=== PATIENT | male | born 1965 | race Caucasian/White ===

== ENCOUNTER 2017-11-14 13:13 | Emergency (ER) | payer OTHER ==
[~2017-11-14] VITALS: Ht 193 cm; Wt 158.8 kg
[2017-11-14] MEDS ORDERED: ALBUTEROL/IPRATROPIUM 3 ML NEB NEB ONE (14:00)
[2017-11-14] MEDS ORDERED: DEXAMETHASONE SOD PHOS 10 MG/1 ML VIAL IV ONE (14:00)
[2017-11-14 19:54] VITALS: BP 156/92
== END 2017-11-14 14:15 | disposition home or self-care (01) ==
LOC: ER 13:13 → FSED 14:15
DX: R05 Cough (principal); R10.12 Left upper quadrant pain; J20.9 Acute bronchitis, unspecified; I10 Essential (primary) hypertension
CPT/HCPCS: 99282; J1100

== ENCOUNTER → 2018-01-08 | Day surgery (SDC) | payer OTHER ==
[2018-01-06 17:19] LABS: BASOPHILS # (AUTO) 0.1 (0.0-0.1); BASOPHILS % 0.6 % (0.0-1.0); EOSINOPHILS # (AUTO) 0.5 (0.0-0.4); EOSINOPHILS % 4.2 % (0.0-6.0); HEMATOCRIT 46.7 % (38.2-49.6); HEMOGLOBIN 16.4 g/dL (14.0-18.0); LYMPHOCYTES # (AUTO) 3.2 (1.0-3.2); LYMPHOCYTES % 29.3 % (18.0-39.1); MEAN CORPUSCULAR HEMOGLOBIN 31.5 pg (28-32); MEAN CORPUSCULAR HGB CONC 35.1 g/dL (31-35); MEAN CORPUSCULAR VOLUME 89.6 fL (81-99); MONOCYTES # (AUTO) 0.6 (0.2-0.8); MONOCYTES % 5.2 % (4.4-11.3); NEUTROPHILS # (AUTO) 6.6 (2.1-6.9); NEUTROPHILS % 60.4 % (38.7-80.0); PLATELET COUNT 233 x10e3/uL (140-360); RED BLOOD COUNT 5.21 x10e6/uL (4.3-5.7); RED CELL DISTRIBUTION WIDTH 13.5 % (11.7-14.4)
--- NOTE | 2018-01-06 17:19 | Diagnostic Imaging Report ---
PROCEDURE: Frontal and lateral views of the chest. COMPARISON: None. INDICATIONS: PRE-OP HERNIA FINDINGS: Lines/tubes: None. Lungs: The lungs are well inflated and clear. There is no evidence of pneumonia or pulmonary edema. Pleura: There is no pleural effusion or pneumothorax. Heart and mediastinum: The heart and the mediastinum are normal. Bones: No acute bony abnormality. IMPRESSION: No acute cardiopulmonary disease. Dictated by: Jesse Dillard M.D. on 01/06/2018 at 17:19 Electronically approved by: Jesse Dillard M.D. on 01/06/2018 at 17:19
[2018-01-06 17:35] LABS: ANION GAP 11.9 mmol/L (8-16); BLOOD UREA NITROGEN 10 mg/dL (7-26); BUN/CREATININE RATIO 10 (6-25); CALCIUM 9.2 mg/dL (8.4-10.2); CARBON DIOXIDE 24 mmol/L (22-29); CHLORIDE 106 mmol/L (98-107); CREATININE, SERUM 1.01 mg/dL (0.72-1.25); EST GLOMERULAR FILTRATION RATE > 60 ML/MIN (60-); GLUCOSE 143 mg/dL (74-118); POTASSIUM 3.9 mmol/L (3.5-5.1); SODIUM 138 mmol/L (136-145)
[~2018-01-08] MED LIST: ACETAMINOPHEN 1000 MG/100 ML IV ONE; BUPIVACAINE 0.25%/EPI 30ML SDV INJ ONE; BYSTOLIC10 MG PO; DEXAMETHASONE SOD PHOS INJ 4 MG/ML VIAL ONE; EPHEDRINE SULFATE INJ 50 MG/10 ML SYR ONE; EXFORGE 10-3201 EACH PO; FENTANYL CITRATE/PF 100MCG/2 ML INJ ONE; HYDRALAZINE HCL10 MG PO; KETOROLAC TROMETHAMINE 30 MG/ML VIAL ONE; LIDOCAINE HCL 1% LOCAL INJ 20 ML VIAL ONE; LIDOCAINE HCL 2% LOCAL INJ 5 ML SDV VIAL INJ ONE; MIDAZOLAM HCL 2 MG/2 ML VIAL ONE; ONDANSETRON HCL INJ 2 MG/ML VIAL ONE; PROPOFOL IV EMULSION 10 MG/ML 20 ML VIAL ONE; ROCURONIUM BROMIDE 10 MG/ML 5ML VIAL ONE; SEVOFLURANE INHAL SOLN 250 ML PEN BTL ONE
--- OUTSIDE RECORDS SUMMARY | 2018-01-08 05:36 | XMS REPORT | Continuity of Care Document ---
Author Author [facility] Organization [facility] Address [address] [place] [address] Phone Unavailable Care Team Providers Care Coating And Baking Operator Name Role Phone OTTO JERONIMO MD PCP Advance Directives Directive Response Recorded Date/Time Does the patient have an advance directive? No 11/14/17 2:31pm If yes, is advance directive on file with [facility]? No 11/14/17 2:31pm If not on file with [facility] will patient provide a copy? No 11/14/17 2:31pm Do you have a Directive to Physician? No 11/14/17 2:31pm Do you have a Medical Power of Boat Deckhand? No 11/14/17 2:31pm Do you have an out of hospital Do Not Resuscitate Order? No 11/14/17 2:31pm Do you have any special needs we should be aware of? No 11/14/17 2:31pm Do you have a support person here with you today? Yes 11/14/17 2:31pm Did patient receive Notice of Privacy Practices? Yes 11/14/17 2:31pm Did patient receive patient rights and responsibilities? Yes 11/14/17 2:31pm Problems No problem information available. Medications No medication information available. Social History Smoking Status Start Date Stop Date Current every day smoker Hospital Discharge Instructions No hospital discharge instruction information available. Plan of Care Discharge Date 11/14/17 2:15pm Disposition HOME, SELF-CARE Condition at Discharge Stable Instructions/Education Provided Bronchitis (Acute) - Adult Forms Provided Work/School Excuse Prescriptions See Medication Section Referrals OTTO JERONIMO MD Address: [address] [place] [id number] Additional Instructions/Education Discussed working diagnosis of bronchitis with patient. Recommend medical therapy. Use only Chlorcedin for cough OTC. DO NOT DRIVE while on narcotic cough medication. Follow up with MD if no better in 2-4 days. ED warnings given. Functional Status No functional status information available. Allergies, Adverse Reactions, Alerts No allergy information available. Immunizations No immunization information available. Vital Signs Acute Vital Signs Vital Response Date/Time Pulse Pulse Rate (adult) 74 bpm (60 - 90) 11/14/2017 7:54pm Respiratory Rate 16 bpm (12 - 24) 11/14/2017 7:54pm Blood Pressure 156/92 mm Hg 11/14/2017 7:54pm Height 6 ft 4 in 11/14/2017 1:30pm Weight 350 lb 11/14/2017 1:30pm Body Mass Index 42.6 kg/m^2 11/14/2017 1:30pm Results No relevant diagnostic test, laboratory data and/or discharge summary information available. Procedures No procedure information available. Encounters Encounter Location Arrival/Admit Date Discharge/Depart Date Attending Provider Departed Emergency Room [facility] 11/14/17 1:13pm 2:15pm KRYSTLE CARVAJAL MD
--- OUTSIDE RECORDS SUMMARY | 2018-01-08 05:36 | XMS REPORT ---
Author Author [facility] Address Unknown Phone Unavailable Care Team Providers Care Vat Tender Name Role Phone BELAMENDEZROSMERY Unavailable Unavailable Problems This patient has no known problems. Allergies, Adverse Reactions, Alerts This patient has no known allergies or adverse reactions. Medications This patient has no known medications. Results Test Description Test Time Test Comments Text Results Atomic Results Result Comments CHEST 2 VIEWS [place] [address] Patient Name: CHASITY LOW MR #: [id number] : 1965 Age/Sex: 53/M Req #: [id number] Adm Physician: Ordered by: COMFORT BILLS MD Report #: [id number] Location: OR Room/Bed: Procedure: [id number] DX/ CHEST 2 VIEWS Exam Date: 01/06/18 Exam Time: 1650 REPORT STATUS: Signed PROCEDURE: Frontal and lateral views of the chest. COMPARISON: None. INDICATIONS: PRE-OP HERNIA FINDINGS: Lines/tubes: None. Lungs: The lungs are well inflated and clear. There is no evidence of pneumonia or pulmonary edema. Pleura: There is no pleural effusion or pneumothorax. Heart and mediastinum: The heart and the mediastinum are normal. Bones: No acute bony abnormality. IMPRESSION: No acute cardiopulmonary disease. Dictated by: Tanya Dillard M.D. on 01/06/2018 at 17:19 Electronically approved by: Tanya Dillard M.D. on 01/06/2018 at 17:19 Dictated By: TANYA DILLARD MD 18 Transcribed By: KAR on 01/06/181718 COPY TO: COMFORT BILLS MD
--- NOTE | 2018-01-08 11:03 | Operative Report ---
DATE OF PROCEDURE: January 08, 2018 PREOPERATIVE DIAGNOSIS: Incarcerated umbilical hernia. POSTOPERATIVE DIAGNOSIS: Incarcerated umbilical hernia. OPERATION PERFORMED: Repair of incarcerated umbilical hernia with Ventralex patch and omentectomy. GIS INSTRUCTOR: Alex LADD. ANESTHESIA: General. COMPLICATIONS: None. ESTIMATED BLOOD LOSS: Minimal. DESCRIPTION OF PROCEDURE: With the patient lying in bed in the supine position under good general endotracheal anesthesia, the abdomen was prepped, Betadine solution, and draped in the usual manner. A semilunar subumbilical incision was made, carried down into the subcutaneous tissue and immediately a large hernia sac was encountered that contained a large amount of incarcerated omentum. The hernia sac was then slowly and carefully dissected circumferentially and the umbilicus was from the hernia sac. The hernia sac was then opened and a large amount of incarcerated omentum that could not be reduced back to the intra-abdominal cavity was identified. The omentum was then slowly and carefully divided and ligated with 2-0 Vicryl and the omentum was totally resected. After this was done, the hernia was completely reduced. There were no adhesions to the undersurface of the peritoneum. The excess of the hernia sac was then resected and a large Ventralex patch was placed intraabdominally intact, using interrupted sutures of 0 Ethibond, anchoring the edges of the mesh. After this was done, the midline defect was then closed transversely using interrupted sutures of 0 Ethibond and anchoring the mesh with the closure. This was a satisfactory repair without any tension. The whole area was thoroughly irrigated. Perfect hemostasis was ascertained. All layers were infiltrated on the way out with a solution of 1/4 percent Marcaine. Subcutaneous tissue at umbilicus was tacked down to the midline fascia with interrupted sutures of 3-0 Vicryl and the skin was closed with interrupted vertical mattress sutures of 3-0 silk. A dressing was applied. The sponge, lap, and needle count was correct. Patient tolerated the procedure well and returned to the recovery room in stable condition. Job#: [id number] IL
== END | disposition home or self-care (01) ==
LOC: OR 05:34
PROVIDERS: ATTEND Surgery
DX: K42.0 Umbilical hernia with obstruction, without gangrene (principal); I10 Essential (primary) hypertension; E66.01 Morbid (severe) obesity due to excess calories; G47.33 Obstructive sleep apnea (adult) (pediatric); F17.210 Nicotine dependence, cigarettes, uncomplicated; Z01.810 Encounter for preprocedural cardiovascular examination; Z01.812 Encounter for preprocedural laboratory examination; Z01.818 Encounter for other preprocedural examination
CPT/HCPCS: 36415 ×2; 49587; 71046; 80048; 82948; 85025; 88302; 93005; C1781; J1100; J1885; J2001; J2250; J2405

== ENCOUNTER 2018-04-22 21:10 | Emergency (ER) | payer OTHER ==
[~2018-04-22] VITALS: Ht 193 cm; Wt 158.8 kg
[~2018-04-22 21:10] MED LIST changes: -ACETAMINOPHEN 1000 MG/100 ML IV ONE; -BUPIVACAINE 0.25%/EPI 30ML SDV INJ ONE; -DEXAMETHASONE SOD PHOS INJ 4 MG/ML VIAL ONE; -EPHEDRINE SULFATE INJ 50 MG/10 ML SYR ONE; -FENTANYL CITRATE/PF 100MCG/2 ML INJ ONE; -KETOROLAC TROMETHAMINE 30 MG/ML VIAL ONE; -LIDOCAINE HCL 1% LOCAL INJ 20 ML VIAL ONE; -LIDOCAINE HCL 2% LOCAL INJ 5 ML SDV VIAL INJ ONE; -MIDAZOLAM HCL 2 MG/2 ML VIAL ONE; -ONDANSETRON HCL INJ 2 MG/ML VIAL ONE; -PROPOFOL IV EMULSION 10 MG/ML 20 ML VIAL ONE; -ROCURONIUM BROMIDE 10 MG/ML 5ML VIAL ONE; -SEVOFLURANE INHAL SOLN 250 ML PEN BTL ONE
[2018-04-22 23:19] LABS: BASOPHILS # (AUTO) 0.1 (0.0-0.1); BASOPHILS % 0.7 % (0.0-1.0); EOSINOPHILS # (AUTO) 0.4 (0.0-0.4); EOSINOPHILS % 3.9 % (0.0-6.0); HEMOGLOBIN 16.7 g/dL (14.0-18.0); LYMPHOCYTES # (AUTO) 3.1 (1.0-3.2); LYMPHOCYTES % 28.3 % (18.0-39.1); MEAN CORPUSCULAR HEMOGLOBIN 31.7 pg (28-32); MEAN CORPUSCULAR HGB CONC 34.1 g/dL (31-35); MONOCYTES # (AUTO) 0.7 (0.2-0.8); MONOCYTES % 6.6 % (4.4-11.3); NEUTROPHILS # (AUTO) 6.6 (2.1-6.9); PLATELET COUNT 248 x10e3/uL (140-360); RED BLOOD COUNT 5.27 x10e6/uL (4.3-5.7); RED CELL DISTRIBUTION WIDTH 13.2 % (11.7-14.4)
[2018-04-22 23:31] LABS: INR 1.04; PROTHROMBIN TIME 12.8 seconds (11.9-14.5)
[2018-04-22 23:32] LABS: PARTIAL THROMBOPLASTIN TIME 29.2 seconds (23.8-35.5)
--- NOTE | 2018-04-22 23:35 | Diagnostic Imaging Report ---
KNEE RIGHT THREE VIEWS Comparison: None Clinical history: Lower extremity edema Findings: No fracture or dislocation. Lucency and sclerosis of the tibial eminence could reflect reactive change/subchondral cyst or intraosseous ganglion. Mild tricompartmental spurring with joint spaces preserved. Impression: No acute bony abnormality Signed by: Dr Batsheva Ayala MD on 04/22/2018 11:32 PM
--- NOTE | 2018-04-22 23:37 | Diagnostic Imaging Report ---
CHEST SINGLE (NOT PORTABLE), Technique: CHEST SINGLE (NOT PORTABLE) Comparison: 01/06/2018 Clinical history: Lower extremity edema DISCUSSION: Stable cardiomediastinal silhouette, within normal limits. Unchanged nonspecific interstitial prominence. No consolidation or edema. No pleural effusion or pneumothorax. IMPRESSION: No acute abnormality Signed by: Dr Batsheva Ayala MD on 04/22/2018 11:34 PM
[2018-04-23 00:11] LABS: ALANINE AMINOTRANSFERASE 35 IU/L (0-55); ALBUMIN/GLOBULIN RATIO 1.1 (0.8-2.0); ANION GAP 14.3 mmol/L (8-16); BLOOD UREA NITROGEN 13 mg/dL (7-26); BUN/CREATININE RATIO 13 (6-25); CALCIUM 9.5 mg/dL (8.4-10.2); CARBON DIOXIDE 23 mmol/L (22-29); CHLORIDE 107 mmol/L (98-107); CREATINE KINASE 180 IU/L (30-200); CREATININE, SERUM 1.01 mg/dL (0.72-1.25); EST GLOMERULAR FILTRATION RATE > 60 ML/MIN (60-); GLUCOSE 134 mg/dL (74-118); POTASSIUM 4.3 mmol/L (3.5-5.1); SODIUM 140 mmol/L (136-145)
[2018-04-23] MEDS ORDERED: KETOROLAC TROMETHAMINE 30 MG/ML VIAL IV STA (00:27)
[2018-04-23] MEDS ORDERED: HYDROCODONE/APAP 10MG-325MG TAB PO ONE (00:30)
[2018-04-23 00:47] LABS: ALBUMIN 3.9 g/dL (3.5-5.0); MAGNESIUM 2.6 MG/DL (1.3-2.1)
[2018-04-23 01:44] LABS: ALKALINE PHOSPHATASE 71 IU/L (40-150)
== END 2018-04-23 01:24 | disposition home or self-care (01) ==
LOC: ER 21:10
DX: M25.561 Pain in right knee (principal); R26.2 Difficulty in walking, not elsewhere classified; I10 Essential (primary) hypertension; K21.9 Gastro-esophageal reflux disease without esophagitis; J45.909 Unspecified asthma, uncomplicated; F32.9 Major depressive disorder, single episode, unspecified
CPT/HCPCS: 36415; 71045; 73562; 80053; 82550; 82553; 83735; 83880; 84484; 85025; 85610; 85730; 93005; 93971; 99284; J1885

== ENCOUNTER 2018-07-12 19:56 | Observation (INO) | payer OTHER ==
[~2018-07-12] VITALS: Ht 193 cm; Wt 176.9 kg
[2018-07-12 20:41] LABS: BASOPHILS # (AUTO) 0.1 (0.0-0.1); BASOPHILS % 0.6 % (0.0-1.0); EOSINOPHILS # (AUTO) 0.4 (0.0-0.4); EOSINOPHILS % 3.2 % (0.0-6.0); HEMATOCRIT 47.2 % (38.2-49.6); HEMOGLOBIN 16.3 g/dL (14.0-18.0); LYMPHOCYTES # (AUTO) 3.3 (1.0-3.2); LYMPHOCYTES % 29.7 % (18.0-39.1); MEAN CORPUSCULAR HGB CONC 34.5 g/dL (31-35); MEAN CORPUSCULAR VOLUME 92.7 fL (81-99); MONOCYTES # (AUTO) 0.7 (0.2-0.8); MONOCYTES % 6.5 % (4.4-11.3); NEUTROPHILS # (AUTO) 6.7 (2.1-6.9); NEUTROPHILS % 59.6 % (38.7-80.0); PLATELET COUNT 228 x10e3/uL (140-360); RED BLOOD COUNT 5.09 x10e6/uL (4.3-5.7); RED CELL DISTRIBUTION WIDTH 13.5 % (11.7-14.4)
[2018-07-12] MEDS ORDERED: ASPIRIN 81 MG CHEW TAB PO ONE (20:45)
[2018-07-12] MEDS ORDERED: NITROGLYCERIN 2% OINT 1 GM PKT TOP ONE (20:45)
[2018-07-12 20:53] LABS: INR 0.95; PROTHROMBIN TIME 13.6 seconds (11.9-14.5)
[2018-07-12 20:54] LABS: PARTIAL THROMBOPLASTIN TIME 28.7 seconds (23.8-35.5)
[2018-07-12 21:03] LABS: ALANINE AMINOTRANSFERASE 38 IU/L (0-55); ALBUMIN 3.7 g/dL (3.5-5.0); ALBUMIN/GLOBULIN RATIO 1.1 (0.8-2.0); ALKALINE PHOSPHATASE 69 IU/L (40-150); ANION GAP 13.9 mmol/L (8-16); BLOOD UREA NITROGEN 12 mg/dL (7-26); BUN/CREATININE RATIO 14 (6-25); CALCIUM 9.4 mg/dL (8.4-10.2); CARBON DIOXIDE 21 mmol/L (22-29); CHLORIDE 111 mmol/L (98-107); CREATINE KINASE 162 IU/L (30-200); CREATININE, SERUM 0.86 mg/dL (0.72-1.25); EST GLOMERULAR FILTRATION RATE > 60 ML/MIN (60-); GLUCOSE 104 mg/dL (74-118); MAGNESIUM 1.9 MG/DL (1.3-2.1); POTASSIUM 3.9 mmol/L (3.5-5.1); SODIUM 142 mmol/L (136-145)
--- NOTE | 2018-07-12 21:06 | Diagnostic Imaging Report ---
EXAM: CHEST 2 VIEWS, PA and lateral INDICATION: Shortness of breath, chest pressure COMPARISON: AP view of the chest April 22, 2018 FINDINGS: LINES/TUBES: None LUNGS: No consolidations or edema. PLEURA: No effusions or pneumothorax. HEART AND MEDIASTINUM: Normal size and contour. BONES AND SOFT TISSUES: No acute findings. IMPRESSION: No acute thoracic abnormality. Signed by: Dr. Sinai Yates M.D. on 07/12/2018 9:03 PM
[2018-07-12 21:17] LABS: B-TYPE NATRIURETIC PEPTIDE2 14.5 pg/mL (0-100)
[2018-07-12] MEDS ORDERED: MORPHINE SULFATE 2 MG/ML SYR IV PRN (22:15)
[2018-07-12] MEDS ORDERED: ALBUTEROL SULF 0.083% NEB SOLN 3 ML NEB NEB PRN (22:15)
[2018-07-12] MEDS ORDERED: ONDANSETRON HCL INJ 2 MG/ML VIAL IV PRN (22:15)
[2018-07-12] MEDS: NICOTINE 14 MG/EA PATCH TOP SCH (22:17)
[2018-07-12 22:39] LABS: BILIRUBIN,URINE NEGATIVE (NEGATIVE); CLARITY,URINE CLEAR (CLEAR); COLOR,URINE YELLOW (YELLOW); KETONES,URINE NEGATIVE (NEGATIVE); LEUKOCYTE ESTERASE ,URINE NEGATIVE (NEGATIVE); NITRITE,URINE NEGATIVE (NEGATIVE); PROTEIN,URINE DIPSTICK NEGATIVE (NEGATIVE); URINE UROBILINOGEN 0.2 mg/dL (0.2 - 1)
[2018-07-12 22:58] LABS: EPITHELIAL CELLS,URINE MANY /LPF
[2018-07-12] MEDS: FAMOTIDINE 20 MG/2 ML VIAL IV SCH (22:59)
[2018-07-12 23:30] VITALS: BP 128/66
[2018-07-13] VITALS (7 sets, daily range): BP systolic 123–155; BP diastolic 66–77
[2018-07-13] MEDS ORDERED: INFLUENZA VIRUS VAC SPLIT INJ 0.5 ML SYR IM SCH (06:00)
[2018-07-13] MEDS ORDERED: PNEUMOCOCCAL VACCINE POLYVALENT 23 MCG/0.5 ML VIAL IM SCH (06:00)
[2018-07-13 06:15] LABS: CREATINE KINASE MB 1.3 ng/mL (0-5.0)
[2018-07-13 06:29] LABS: CHOL/HDL RATIO 5.7 (3.9-4.7)
[2018-07-13] MEDS: NICOTINE 14 MG/EA PATCH TOP SCH (09:00)
[2018-07-13] MEDS ORDERED: ENOXAPARIN SODIUM INJ 100 MG/ML SYR SC SCH (09:30)
[2018-07-13] MEDS: FAMOTIDINE 20 MG/2 ML VIAL IV SCH ×2 (10:40→22:41)
[2018-07-13] MEDS: ASPIRIN 81 MG ENTERIC COATED PO SCH (10:40)
--- NOTE | 2018-07-13 11:09 | Diagnostic Imaging Report ---
EXAM: CT Chest WITH contrast (PE Protocol) INDICATION: \S\RULE OUT DVT, SOB COMPARISON: Chest x-ray 07/12/2018. TECHNIQUE: Chest was scanned utilizing a multidetector helical scanner from the lung apex through the level of the diaphragm after administration of IV contrast. Thin section reconstructions were obtained with special concentration on the pulmonary arteries. Coronal and sagittal reformations were obtained. Pulmonary embolism protocol was performed. IV CONTRAST: 100 mL of Isovue 370 COMPLICATIONS: None RADIATION DOSE: Total DLP: 562.2 mGy*cm Estimated effective dose: (DLP x 0.014 x size factor) mSv CTDIvol has been reviewed. It is below the limits set by the Radiation Protocol Committee (RPC). FINDINGS: LINES/ TUBES: None. LUNGS AND AIRWAYS: Contrast timing is adequate. Significant soft tissue attenuation limits exam. No filling defect is identified within the pulmonary arteries to the segmental level. Nodules are measured on series 3: 6.4 mm nodule in the left upper lobe (image 43). 8.2 mm nodule in the left upper lobe (image 52). Mild breathing motion artifact. Bronchial wall thickening. Mild air trapping in the lung bases. PLEURA: The pleural spaces are clear. HEART AND MEDIASTINUM: The thyroid gland is normal. No mediastinal, hilar or axillary lymphadenopathy. The heart is normal in size. There is no pericardial effusion. There are mild atherosclerotic calcifications in the aorta and coronary arteries.. Main pulmonary artery measures 2.5 cm in diameter and the ascending aorta measures 3.3 cm. UPPER ABDOMEN: Spleen measures 14.2 cm. Liver is hypoattenuating consistent with diffuse hepatic steatosis. Tiny sliding hernia. BONES: There are degenerative changes in the thoracic spine. SOFT TISSUES: Unremarkable. IMPRESSION: 1. No pulmonary emboli. 2. 2 pulmonary nodules in the left upper lobe measuring up to 8 mm. Recommend biopsy. 3. Mild bronchial wall thickening, likely atypical infection or reactive airway. Signed by: Dr. Jesse Dillard M.D. on 07/13/2018 11:06 AM
[2018-07-13] MEDS ORDERED: HEPARIN SOD (PORCINE) 5,000 UNIT/ML VIAL IV ONE (11:45)
[2018-07-13] MEDS ORDERED: HEPARIN 25,000U/0.45% NS 250ML 1,500 UNIT in SODIUM CHLORIDE 0.9% 250ML 0 ML IV SCH (11:45)
[2018-07-13 12:17] LABS: CREATINE KINASE MB 1.2 ng/mL (0-5.0)
--- NOTE | 2018-07-13 12:38 | Consultation ---
DATE OF CONSULTATION: July 13, 2018 CARDIOLOGY CONSULTATION REQUESTING PHYSICIAN: Dr. Longoria. REASON FOR CONSULTATION: Chest pain and shortness of breath. HISTORY OF PRESENT ILLNESS: This is a 53-year-old male with history of hypertension and prior supraventricular tachycardia ablation who presents with complaints of chest pressure. The patient reports he developed chest pressure yesterday morning around 5 a.m. The pain was at its max 8/10 in severity and has been constant since onset. The pain does not radiate, but is associated with shortness of breath. No nausea or diaphoresis. He notes the pain was better with morphine and worse with ambulation. He has had no prior episodes. 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 to [facility] the day prior to symptoms onset. He then drove from [facility] to [place] yesterday and presented to the ER. REVIEW OF SYSTEMS: Negative except as per HPI. PAST MEDICAL HISTORY 1. Hypertension. 2. History of supraventricular tachycardia ablation. PAST SURGICAL HISTORY: Hernia repair in December 2017. SOCIAL HISTORY: He smokes a pack and half a day since the age of 10. He drinks alcohol occasionally. No illicit drugs. FAMILY HISTORY: Noncontributory. ALLERGIES: NO KNOWN DRUG ALLERGIES. MEDICATIONS: Please see EMR. PHYSICAL EXAM VITAL SIGNS: Temperature 96.7 degrees, pulse 51, respiratory rate 20, blood pressure 123/74, and oxygen saturation 93% on room air. GENERAL: Obese gentleman, in no acute distress. HEENT: Normocephalic, atraumatic. Pupils are equal. No scleral icterus. NECK: Supple. No thyromegaly or cervical lymphadenopathy. No carotid bruits. LUNGS: Clear to auscultation bilaterally. No wheezes or crackles. CARDIOVASCULAR: Normal rate, regular rhythm. No murmur. Normal S1 and S2. ABDOMEN: Soft, nontender. EXTREMITIES: 1+ pitting edema in bilateral lower extremities. NEURO: Nonfocal exam. LABS: WBC 11.18, hemoglobin 16.3, hematocrit 47.2, and platelets 228. Sodium 142, potassium 3.9, chloride 111, CO2 21, BUN 12, creatinine 0.86. Troponin 0.004, BNP 14.5, triglyceride 289, cholesterol 154, LDL 69, HDL 27. UA with 6 to 10 WBCs. Chest x-ray, no acute thoracic abnormality. EKG, sinus bradycardia, otherwise normal ECG. IMPRESSION 1. Chest pain. 2. Shortness of breath. 3. Hypertension. 4. History of supraventricular tachycardia ablation. RECOMMENDATIONS: Trend cardiac enzymes to rule out myocardial infarction. We will obtain echocardiogram. Given patient's recent travel, plan for CTA of the chest to rule out pulmonary embolism. We will obtain bilateral lower extremity venous Dopplers to evaluate for DVT. Given patient's risk factors, ischemic evaluation is wanted with nuclear stress test. The patient indicates he is unable to treadmill, but had caffeine this morning. Nuclear stress test will be performed tomorrow. In the meantime, continue current cardiac medications, empiric anticoagulation. Thank you for this consult. We will continue to follow. Job#: [id number] JACQUI
--- NOTE | 2018-07-13 13:43 | History and Physical ---
DATE OF SERVICE: 07/13/2018 DATE OF : 1965 CHIEF COMPLAINT: Chest pressure. HISTORY OF PRESENT ILLNESS: This is a 53-year-old white man who presents to [facility] Emergency Room with sudden onset of chest pressure and shortness of breath. 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 Patient states he walked less than 200 feet and became very dyspneic. Patient denied any nausea or diaphoresis. Patient is concerned because his father had a myocardial infarction at age 71. 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 In the emergency room, patient underwent a chest x-ray, which was unremarkable. The patient was found to have a D-dimer of 0.18 which is within normal limits. Patient's complete blood count and comprehensive metabolic profile within normal limits. Patient; however, was found to have triglyceride level of 289, LDL cholesterol of 69 mg/dL, patient HDL cholesterol of 77 mg/dL. Patient's first set of cardiac enzymes are not consistent with acute myocardial ischemia or infarction. Patient was admitted for further evaluation and treatment. REVIEW OF SYSTEMS GENERAL: Weight has been stable. No fever or chills. HEENT: No headaches. No visual changes. CARDIOVASCULAR/RESPIRATORY: Chest pressure with shortness of breath as per HPI. No cough. No diagnosis of COPD. GI: No nausea, vomiting, or constipation. : No dysuria or hematuria currently. NEUROMUSCULAR: No limb weakness or numbness. 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 ALLERGIES: NO KNOWN DRUG ALLERGIES. FAMILY HISTORY: Father had myocardial infarction at age 71. SOCIAL HISTORY: He is , lives with his . 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 He has been smoking tobacco heavily since age 15. Patient is a [id number]-pmaw smoker. He states he just drinks alcohol in the form of whisky on a sporadic basis. Patient states he dabs tobacco. PAST SURGICAL HISTORY 1. Umbilical hernia repair. 2. Heart ablation to treat supraventricular tachycardia. 3. Left heart catheterization. PAST MEDICAL HISTORY 1. Extremely obese, BMI 47. 2. Chronic lower leg edema. 3. Hypertensive heart disease. 4. Dyslipidemia. 5. Remote history of supraventricular tachycardiac requiring ablation. 6. Obstructive sleep apnea (requiring CPAP nightly). HOME MEDICATIONS 1. Amlodipine/valsartan 10/325 mg one every evening. 2. Hydralazine 10 mg b.i.d. 3. Bystolic 20 mg q.h.s. PHYSICAL EXAMINATION GENERAL: He is awake, alert, very pleasant. His at bedside. VITAL SIGNS: Height 6 feet 4 inches, weight 389 pounds, BMI 47. Blood pressure is 123/74, pulse is 52, respiratory rate is 18, oxygen saturation is 93% on room air, temperature 96.7. INTEGUMENT: Skin is warm and dry. No pallor, jaundice, or diaphoresis. HEENT: Anicteric sclerae. Moist mucous membranes. Patient has extremely poor dentition. NECK: Supple. CARDIOVASCULAR: Regular rate and rhythm. LUNGS: No rales. No rhonchi. No wheezes. ABDOMEN: Obese. EXTREMITIES: Patient has trace to 1+ edema in the bilateral lower legs. NEUROLOGIC: Intact. DIAGNOSES 1. Angina. 2. Extreme obesity, body mass index 47. 3. Hypertensive heart disease. 4. Dyslipidemia. PLAN 1. Rule out myocardial infarction. 2. Highly tobacco cessation. 3. Order a CT angiogram of the chest to assess for pulmonary thromboembolism. Discussed the case with the patient's industrial safety and health technician and we agree that if the patient does not have a pulmonary embolism, then he would likely benefit from a left heart catheterization. I spent 40 minutes in the care of this patient. Job#: [id number] DON WILLIS
[2018-07-13] MEDS: ENOXAPARIN SOD INJ 40 MG/0.4 ML SYR SC SCH (17:23)
[2018-07-13] MEDS: ALBUTEROL/IPRATROPIUM 3 ML NEB NEB SCH ×2 (19:25→23:15)
[2018-07-13] MEDS ORDERED: IOPAMIDOL 370 MG/ML 200 ML INFUS..BTL INJ ONE (21:39)
[2018-07-13] MEDS ORDERED: SODIUM CHLORIDE 0.9% 50ML 50 ML ONE (21:39)
[2018-07-14] VITALS (7 sets, daily range): BP systolic 124–182; BP diastolic 56–85
[2018-07-14] MEDS: ALBUTEROL/IPRATROPIUM 3 ML NEB NEB SCH ×6 (03:17→23:55)
[2018-07-14 06:09] LABS: BASOPHILS # (AUTO) 0.1 (0.0-0.1); BASOPHILS % 0.8 % (0.0-1.0); EOSINOPHILS # (AUTO) 0.3 (0.0-0.4); EOSINOPHILS % 3.2 % (0.0-6.0); HEMATOCRIT 46.6 % (38.2-49.6); HEMOGLOBIN 15.8 g/dL (14.0-18.0); MEAN CORPUSCULAR HEMOGLOBIN 31.7 pg (28-32); MEAN CORPUSCULAR HGB CONC 33.9 g/dL (31-35); MEAN CORPUSCULAR VOLUME 93.4 fL (81-99); MONOCYTES # (AUTO) 0.6 (0.2-0.8); MONOCYTES % 6.8 % (4.4-11.3); NEUTROPHILS # (AUTO) 5.8 (2.1-6.9); NEUTROPHILS % 65.7 % (38.7-80.0); PLATELET COUNT 208 x10e3/uL (140-360); RED BLOOD COUNT 4.99 x10e6/uL (4.3-5.7); RED CELL DISTRIBUTION WIDTH 13.6 % (11.7-14.4)
[2018-07-14 06:33] LABS: ANION GAP 14.9 mmol/L (8-16); BLOOD UREA NITROGEN 11 mg/dL (7-26); BUN/CREATININE RATIO 12 (6-25); CALCIUM 8.4 mg/dL (8.4-10.2); CARBON DIOXIDE 22 mmol/L (22-29); CHLORIDE 107 mmol/L (98-107); CREATININE, SERUM 0.93 mg/dL (0.72-1.25); EST GLOMERULAR FILTRATION RATE > 60 ML/MIN (60-); GLUCOSE 132 mg/dL (74-118); POTASSIUM 3.9 mmol/L (3.5-5.1); SODIUM 140 mmol/L (136-145)
[2018-07-14] MEDS ORDERED: REGADENOSON 0.4 MG/5 ML SYR IV ONE (08:38)
[2018-07-14] MEDS: ASPIRIN 81 MG ENTERIC COATED PO SCH (09:00)
[2018-07-14] MEDS: NICOTINE 14 MG/EA PATCH TOP SCH (09:00)
[2018-07-14] MEDS: FAMOTIDINE 20 MG/2 ML VIAL IV SCH ×2 (10:15→21:59)
--- NOTE | 2018-07-14 12:48 | Progress Note ---
DATE: July 14, 2018 CARDIOLOGY PROGRESS NOTE SUBJECTIVE: No major events overnight. Feels a lot better this morning. No chest pain. Shortness of breath significantly improved. Walking around in the hallway. OBJECTIVE VITAL SIGNS: Temperature 96.4, pulse 61, respiratory rate 20, blood pressure 124/56, satting 99%. GENERAL: Obese white man in no acute distress. CARDIOVASCULAR: Regular rate and rhythm. No murmurs, rubs or gallops. Palpable carotid pulses. Palpable radial pulses. No significant edema or varicosities noted. LUNGS: Clear to auscultation bilaterally. However, difficult exam due to body habitus. No crackles or wheezing. ABDOMEN: Very obese, soft, nontender. No masses. NEURO AND PSYCH: Alert and oriented to person, place and time. Normal affect. LABORATORY DATA: Reviewed. Cardiac enzymes negative x3. TELEMETRY DATA: Reviewed. Normal sinus rhythm. ASSESSMENT 1. Angina. 2. Morbid obesity, body mass index 47. 3. Hypertensive heart disease. 4. Dyslipidemia. PLAN: Myocardial infarction has been ruled out. Discussed tobacco cessation with the patient. CT angiogram has been done to rule out pulmonary embolism. Patient likely needs a coronary angiogram, but this can be done as an outpatient as acute CO has been ruled out. He can follow up with his primary functional manager for further followup. Cardiac enzymes have been negative. Myocardial infarction has been ruled out. CT angiogram of the chest showed no pulmonary embolism. Patient is to have a nuclear stress test done today. We will follow up on the results. May need a catheterization depending on the results of the nuclear stress test. Thank you for this consult. Will continue to follow. Job#: [id number] EV
--- NOTE | 2018-07-14 15:25 | Cardiology Report ---
DATE OF STUDY: July 14, 2018 PROCEDURE TITLE: Two-day rest/stress single isotope SPECT imaging with pharmacologic stress and gated SPECT imaging. INDICATIONS: Chest pain. PROCEDURE: Pharmacologic stress testing was performed with regadenoson per protocol. The heart rate was 63 beats per minute at baseline and increased to 82 beats per minute during the regadenoson infusion. The rest blood pressure was 136/76 and increased to 154/63 mmHg, which is a normal response. The patient developed no significant symptoms. The resting electrocardiogram demonstrated normal sinus rhythm. There were no ST segment changes consistent with myocardial ischemia. Next, myocardial perfusion imaging was performed at rest following the injection of 32 millicuries of tetrofosmin. At peak pharmacologic effect, the patient was injected with 31 millicuries of tetrofosmin. Gated poststress tomographic imaging was performed. FINDINGS: The overall quality of the study is fair. Left ventricle is noted to be enlarged on the rest and stress studies. SPECT images demonstrate a medium-sized mild perfusion defect on the inferolateral wall at stress. Gated SPECT imaging reveals normal myocardial thickening and wall motion. The left ventricular ejection fraction was calculated to be 48%. IMPRESSION: Myocardial perfusion imaging is abnormal. There is a medium-sized area of ischemia in the inferolateral wall. Overall left ventricular systolic motion was impaired without regional wall motion abnormalities. Job#: [id number] EV
[2018-07-14] MEDS: ENOXAPARIN SOD INJ 40 MG/0.4 ML SYR SC SCH (16:30)
[2018-07-14] MEDS ORDERED: VALSARTAN PO SCH (21:00)
[2018-07-14] MEDS ORDERED: AMLODIPINE BESYLATE 10 MG TAB PO SCH (21:00)
[2018-07-14] MEDS ORDERED: VALSARTAN 160 MG TAB PO SCH (21:00)
[2018-07-14] MEDS ORDERED: NEBIVOLOL 10 MG TAB PO SCH (21:00)
[2018-07-14] MEDS ORDERED: AMLODIPINE PO SCH (21:00)
[2018-07-15] VITALS (18 sets, daily range): BP systolic 134–181; BP diastolic 70–97
[2018-07-15] MEDS: ALBUTEROL/IPRATROPIUM 3 ML NEB NEB SCH ×4 (03:00→14:59)
[2018-07-15] MEDS ORDERED: HEPARIN SOD (PORCINE) 1000 UNIT/ML 30ML ONE (06:38)
[2018-07-15] MEDS ORDERED: MIDAZOLAM HCL 2 MG/2 ML VIAL ONE (06:38)
[2018-07-15] MEDS ORDERED: VERAPAMIL HCL 2.5 MG/ML 2 ML VIAL ONE (06:38)
[2018-07-15] MEDS ORDERED: HEPARIN SOD/SOD CHLORIDE 2,000 ML ONE (06:39)
[2018-07-15] MEDS ORDERED: IOPAMIDOL 370 MG/ML 200 ML INFUS..BTL INJ ONE ×2 (06:39→08:16)
[2018-07-15] MEDS ORDERED: NITROGLYCERIN/D5W 200 MCG/ML 250 ML ONE (06:39)
[2018-07-15] MEDS ORDERED: FENTANYL CITRATE/PF 100MCG/2 ML INJ ONE (06:39)
[2018-07-15] MEDS ORDERED: LIDOCAINE HCL 2% LOCAL 20 ML VIAL ONE (06:39)
[2018-07-15] MEDS ORDERED: SODIUM CHLORIDE 0.9% 1000ML 1,000 ML ONE (06:39)
[2018-07-15] MEDS ORDERED: AZITHROMYCIN 500MG/NS 250 ML 250 ML IV SCH (07:30)
[2018-07-15] MEDS ORDERED: SODIUM CHLORIDE 0.9% 100 ML 100 ML ONE (08:06)
[2018-07-15] MEDS ORDERED: ADENOSINE 3MG/1ML 30ML VIAL ONE (08:06)
--- NOTE | 2018-07-15 10:06 | Discharge Summary ---
ADMITTING DIAGNOSES 1. Angina. 2. Extreme obesity, body mass index 47. 3. Hypertensive heart disease. 4. Dyslipidemia. DISCHARGE DIAGNOSES 1. Status post left heart catheterization with no percutaneous coronary intervention. 2. Nonobstructive coronary artery disease. 3. Chronic diastolic congestive heart failure. 4. Acute bronchitis. 5. Tobacco abuse. 6. Hypertensive heart disease. 7. Obstructive sleep apnea. 8. Extreme obesity, body mass index 47. 9. Hypertriglyceridemia. HOSPITAL COURSE: This is a 53-year-old white man who was initially admitted to [facility] with diagnosis of angina. The patient was seen by cardiology, namely Dr. Red Reyes. The patient had serial cardiac enzymes as well as electrocardiograms performed that did not reveal any evidence of acute myocardial ischemia or infarction. Nuclear stress test showed possible reversible ischemia thus left heart catheterization was planned. Left heart catheterization revealed nonobstructive coronary artery disease as well as an elevated end-diastolic pressure of 33 mmHg consistent with diastolic heart failure. The patient also has severe obstructive sleep apnea and uses CPAP every night. The patient feels that his CPAP machine may not be functioning properly. The patient is a heavy tobacco smoker, but he is reluctant to quit smoking tobacco. Also during this hospitalization, the patient had a lipid profile done, which revealed an LDL and HDL cholesterol of 69 and 27 mg/dL. The patient's triglycerides were 289 mg/dL. During this hospital stay, the patient was diagnosed with acute bronchitis and was started on intravenous azithromycin, which he tolerated quite well. His hospitalization was unremarkable. The idea of bariatric surgery was discussed with the patient. The patient's condition on discharge was stable. DISCHARGE MEDICATIONS 1. Azithromycin daily for a total of 5 days. 2. Aspirin 81 mg daily. 3. Valsartan 320 mg daily. 4. Amlodipine 10 mg daily. 5. Bystolic 20 mg daily. 6. Albuterol inhaler 2 puffs q.i.d. p.r.n. shortness of breath or wheezing. 7. Nicotine patch 14-mg strength 1 patch daily. 8. Hydralazine 50 mg b.i.d. 9. Furosemide 40 mg daily. FOLLOWUP INSTRUCTIONS: The patient was instructed to follow up with his primary care doctor, namely Dr. Shaw, within 7 to 10 days. The patient was instructed to follow up with Dr. Reyes within the next 2 weeks. Also, prior to discharge, outpatient overnight sleep study was arranged at [facility] to further evaluate the severity of his obstructive sleep apnea. Moreover, during this hospitalization, the idea of bariatric surgery was discussed with the patient. Also, absolute tobacco cessation was recommended to the patient. PEMA WALL MD Job#: [id number] cc: RED REYES MD MTDD
--- NOTE | 2018-07-15 10:46 | Progress Note ---
DATE: July 15, 2018 CARDIOLOGY PROGRESS NOTE SUBJECTIVE: Patient had coronary angiography and left heart catheterization performed by me earlier this morning. He is doing well afterwards. No complaints. OBJECTIVE: VITAL SIGNS: Temperature 98.6, heart rate 78, blood pressure 150/80, satting 98% on nasal cannula. GENERAL: Well-developed, obese white man, no acute distress. CARDIOVASCULAR: Exam is difficult due to morbid obesity. PMI could not be palpated. Normal S1, S2. Palpable carotid pulses. Palpable radial pulses. No murmurs, rubs, or gallops. LUNGS: Clear to auscultation bilaterally. No respiratory distress. ABDOMEN: Very obese, soft, nontender. No masses. NEURO AND PSYCH: Alert and oriented to person, place, and time. Normal affect. LABORATORY DATA: Reviewed. TELEMETRY DATA: Reviewed, shows normal sinus rhythm. CARDIOVASCULAR MEDICATIONS: Reviewed. ASSESSMENT AND PLAN: 1. Exertional chest pain and dyspnea. 2. Nonobstructive coronary artery disease. 3. Diastolic heart failure. 4. Hypertension. 5. Morbid obesity. RECOMMENDATIONS: Coronary angiography this morning showed nonobstructive CAD of the LAD. FFR was performed and was negative for any hemodynamic obstruction. His LV end-diastolic pressure was very elevated at 33 mmHg consistent with diastolic heart failure. Recommend starting him on some diuretics. Otherwise, continue optimal medical therapy and risk factor control. Specifically, he needs to lose weight and control his blood pressure better for him to start feeling better. Patient will follow up with us in clinic in 2 weeks. Okay to be discharged from cardiovascular standpoint. Will check his renal function and potassium in 2 weeks when he presents to clinic. Thank you for this consult. Will continue to follow while patient is still in the hospital. Job#: [id number]
[2018-07-15] MEDS ORDERED: FUROSEMIDE40 MG PO (12:51)
[2018-07-15] MEDS ORDERED: HYDRALAZINE HCL25 MG PO (12:51)
[2018-07-15] MEDS ORDERED: AZITHROMYCIN250 MG PO (12:52)
[2018-07-15] MEDS ORDERED: NICOTINE PATCH1 EAC5 TD (12:52)
[2018-07-15] MEDS ORDERED: ASPIRIN81 MG PO (12:53)
[2018-07-15] MEDS ORDERED: ALBUTEROL0.63 MG/3 INH (12:54)
[2018-07-15] MEDS ORDERED: PROAIR HFA INH8.5 GM INH (12:55)
--- NOTE | 2018-07-15 13:41 | Operative Report ---
DATE OF PROCEDURE: July 15, 2018 PROCEDURE PERFORMED: Cardiac catheterization. INDICATIONS: Chest pain, positive stress test. PRE-SEDATION ASSESSMENT: Medical history, social history, and previous experience with anesthesia were reviewed and documented in the preoperative medical record. Results of relevant diagnostic studies were reviewed. Planned choice of anesthesia, risks, complications, benefits and alternatives were discussed with the patient. Patient was deemed an appropriate candidate for moderate sedation. CONSENT: The benefits, risks, complications and alternatives to the procedure were discussed with the patient, and informed consent was obtained from patient or his surrogate. MEDICATIONS: Please see nursing notes for medications administered during the procedure. PROCEDURE: Patient was brought to the cardiac catheterization laboratory in a fasting state. Right wrist was prepped and draped in a sterile fashion, and 1% lidocaine was used to infiltrate the right wrist over the right radial artery. A 6-Faroese sheath was placed in the right radial artery using the modified Seldinger technique. Coronary angiography was performed using an XB-3.5 preformed guiding catheter for the left coronary artery and a JR4 diagnostic catheter for the right coronary artery. A 50% lesion was noted in the mid LAD. An FFR of the LAD was performed with administration of IV adenosine for 2-1/2 minutes. The pa FFR was noted to be 0.86, which is nonsignificant. FFR wire was removed. No drift was noted. Final angiogram of the left coronary system showed no dissection, spasm or thrombus. Anticoagulation was achieved using IV heparin to achieve ACT near 300. The case ended without any complications. The access site was closed using a TR band. Estimated blood loss about 20 mL. SIGNIFICANT FINDINGS: Left main coronary artery: Large caliber, normal. Left anterior descending artery: Large vessel, goes to the apex. Two large diagonals. Diagonal 2 is a 2 mm vessel with about 70% ostial disease. There is a 50% lesion in the mid and a 50% lesion in the distal LAD. Left circumflex: Large dominant left circumflex. Two significant OM branches, distal PDA and PL branches. Mild plaquing without any significant coronary artery disease. RCA: A small non-dominant RCA with mild plaquing. COMPLICATIONS: None. SPECIMENS REMOVED: None. IMPLANTS: None. ESTIMATED BLOOD LOSS: 20 mL. RECOMMENDATIONS: 1. Usual post-PCI care until TR band removal. 2. Continue optimal medical therapy and risk-factor control. Specifically, patient's LV end-diastolic pressure was 33 mmHg. Will start him on some diuretics. 3. Call the office for followup in 2 weeks post procedure. Job#: [id number] EV
--- OUTSIDE RECORDS SUMMARY | 2018-07-29 08:26 | XMS REPORT | Continuity of Care Document ---
Author Author [facility] Interface Address Unknown Phone Unavailable Problems Problem Status Onset Date Classification Date Reported Comments Source Medications Medication Details Route Status Patient Instructions Ordering Provider Order Date Source Allergies, Adverse Reactions, Alerts Substance Category Reaction Severity Reaction type Status Date Reported Comments Source Immunizations Immunization Date Given Site Status Last Updated Comments Source Results Order Name Results Value Reference Range Date Interpretation Comments Source Vital Signs Vital Sign Value Date Comments Source Encounters Location Location Details Encounter Type Encounter Number Reason For Visit Attending Provider ADM Date DC Date Status Source Outpatient [id number] [facility] 12/08/2015 Active [facility] Outpatient [id number] [facility] 12/26/2015 Active [facility] Outpatient [id number] LANA CARDOZO 05/10/2016 Active [facility] Outpatient [id number] [facility] 06/27/2016 Active [facility] Procedures Procedure Code Date Perfomer Comments Source
== END 2018-07-15 15:22 | disposition home or self-care (01) ==
LOC: ER 19:56 → ERHOLD 22:28 → MED/SURG 23:33
PROVIDERS: ADMIT Internal Medicine; ATTEND Internal Medicine
DX: I25.119 Atherosclerotic heart disease of native coronary artery with unspecified angina pectoris (principal); R94.39 Abnormal result of other cardiovascular function study; I11.0 Hypertensive heart disease with heart failure; I50.32 Chronic diastolic (congestive) heart failure; G47.33 Obstructive sleep apnea (adult) (pediatric); E78.1 Pure hyperglyceridemia; J20.9 Acute bronchitis, unspecified; E66.01 Morbid (severe) obesity due to excess calories; F17.210 Nicotine dependence, cigarettes, uncomplicated; Z68.42 Body mass index [BMI] 45.0-49.9, adult; Z82.49 Family history of ischemic heart disease and other diseases of the circulatory system; Z23 Encounter for immunization
CPT/HCPCS: 36415 ×3; 71046; 71260; 78452; 80048; 80053; 80061; 81001; 82550 ×2; 82553 ×2; 83605; 83735; 83880; 84484 ×2; 85025 ×2; 85379 ×2; 85610; 85730; 87040; 87086; 90732; 93005; 93017; 93306; 93458; 93571; 94640 ×5; 99284; A9502; C1887; G0378 ×4; J0153; J0456; J1644; J1650 ×2; J2001; J2250; J2270; J2405; J7030; Q9967 ×2; G0009

== ENCOUNTER → 2018-07-23 | Outpatient (CLI) | payer OTHER ==
[~2018-07-23] MED LIST changes: +ALBUTEROL0.63 MG/3 INH; +ASPIRIN81 MG PO; +AZITHROMYCIN250 MG PO; +FUROSEMIDE40 MG PO; +HYDRALAZINE HCL25 MG PO; +NICOTINE PATCH1 EAC5 TD; +PROAIR HFA INH8.5 GM INH
--- NOTE | 2018-07-25 16:47 | Polysomnography ---
DATE OF STUDY: HISTORY OF PRESENT ILLNESS: The patient reports excessive fatigue and sleepiness. There is snoring. The patient also wakes up during the night. INTERPRETATION: The patient came to the laboratory for a split night study. During the diagnostic portion of the study, the patient slept for 135 minutes out of 143 minutes. The sleep efficiency was 94.4%. The sleep onset lacy was 2 minutes. The latency to REM was 16.5 minutes. The minimal saturation was 90%. Patient spent 10 minutes in RME sleep. There were 36 apneic events and no hypopneic events. The apnea to hypopneic index was 16 events per hour. The patient spent the entire night on the side. There was no supine sleep. The minimal heart rate was 36 beats per minute. The Charenton sleep score was 19. During the therapeutic portion of the night, the patient slept for 266.5 minutes out of 289.5 minutes. Sleep efficiency was 92.1%. Sleep onset latency was 116 minutes. The patient spent 17.8% of the night in REM sleep. The polysonographer desensitized the patient to CPAP and then initiated CPAP at 4 cm of water pressure. The CPAP was then gradually increased to 16 cm of water pressure. At 16 cm of water pressure, the nocturnal events were successfully eliminated. IMPRESSION 1. Moderate obstructive sleep apnea. 2. Successful treatment of obstructive sleep apnea with CPAP. RECOMMENDATIONS 1. CPAP at 16 cm of water pressure with a heated humidifier. 2. Large size Franco Paykel Eson nasal mask. 3. Avoid alcohol or sedatives prior to retiring at night. 4. Achieve and maintain an ideal body weight. 5. Follow up in 12 weeks to ensure efficacy and compliance with CPAP. Job#: [id number] PAT
== END ==
LOC: SLEEP 21:17
PROVIDERS: ATTEND Internal Medicine
DX: G47.33 Obstructive sleep apnea (adult) (pediatric) (principal)
CPT/HCPCS: 95811

== ENCOUNTER → 2018-08-05 | Outpatient (CLI) | payer OTHER | LOC: CT 09:09 | PROVIDERS: ATTEND Internal Medicine Pulmonary Disease | DX: R91.8 Other nonspecific abnormal finding of lung field (principal) ==

== ENCOUNTER 2018-08-06 10:48 | Emergency (ER) | payer OTHER ==
[~2018-08-06] VITALS: Ht 193 cm; Wt 175.5 kg
[2018-08-06] MEDS ORDERED: SODIUM CHLORIDE 0.9% 1000ML 1,000 ML IV STA (10:55)
[2018-08-06] MEDS ORDERED: MORPHINE SULFATE INJ 4 MG/ML INJ IV STA (10:55)
[2018-08-06] MEDS ORDERED: ONDANSETRON HCL INJ 2 MG/ML VIAL IV STA (10:55)
[2018-08-06] MEDS ORDERED: LIDOCAINE VISC 2% SOLN 15 ML UDC PO ONE (11:00)
[2018-08-06] MEDS ORDERED: MAGNESIUM/ALUMINUM/SIMETHICONE 30 ML UDC PO ONE (11:00)
[2018-08-06] MEDS ORDERED: DIATRIZOATE MEGL/DIATRIZOA SOD 30 ML BTL PO ONE (11:31)
--- NOTE | 2018-08-06 11:59 | Diagnostic Imaging Report ---
EXAM: XR CHEST 2 VIEWS DATE: 08/06/2018 10:55 AM INDICATION: Pain COMPARISON: 07/12/2018 chest x-ray and 07/13/[address], no report available FINDINGS: Lines and Tubes: None Heart and Mediastinum: Accentuated by low lung volumes. Lungs and Pleura: Patchy opacities predominantly involving mid/lower lungs. Findings similar to prior radiograph. Bones and Soft Tissues: No acute findings. IMPRESSION: 1. Patchy basilar opacities statistically atelectasis. Correlation recommended. Signed by: Dr. Tristan Fowler MD on 08/06/2018 11:56 AM
--- NOTE | 2018-08-06 12:16 | Diagnostic Imaging Report ---
PROCEDURE:US GALLBLADDER COMPARISON:None. INDICATIONS:Pain TECHNIQUE: Guerra-scale and color Doppler transverse and longitudinal images of the right upper quadrant of the abdomen were obtained. Limited study due to the patient's body habitus and a large amount of abdominal bowel gas. FINDINGS: Liver: Measures 22.9 cm in right mid-clavicular line. Increased echogenicity. No masses. Main portal vein: Not evaluated Gallbladder: No definite stones are the lower sludge. The wall is not thickened. Common Bile Duct: Not evaluated Sonographic Ledesma's sign: Negative Right kidney: Measures 13.3 x 5.7 x 5.3 cm. Normal echogenicity. No solid masses or hydronephrosis. Pancreas: Not evaluated Inferior vena cava: Not evaluated Aorta: Not evaluated Ascites: None in the right upper quadrant of the abdomen. CONCLUSION: Hepatomegaly with increased hepatic echogenicity. Leonid Drew D.O. Dictated by: Leonid Drew D.O. on 08/06/2018 at 12:24 Electronically approved by: Leonid Drew D.O. on 08/06/2018 at 12:24
[2018-08-06 12:27] LABS: BASOPHILS # (AUTO) 0.1 (0.0-0.1); BASOPHILS % 0.6 % (0.0-1.0); EOSINOPHILS # (AUTO) 0.3 (0.0-0.4); EOSINOPHILS % 2.8 % (0.0-6.0); HEMATOCRIT 49.3 % (38.2-49.6); HEMOGLOBIN 16.9 g/dL (14.0-18.0); LYMPHOCYTES # (AUTO) 2.2 (1.0-3.2); LYMPHOCYTES % 21.4 % (18.0-39.1); MEAN CORPUSCULAR HEMOGLOBIN 32.1 pg (28-32); MEAN CORPUSCULAR HGB CONC 34.3 g/dL (31-35); MEAN CORPUSCULAR VOLUME 93.5 fL (81-99); MONOCYTES # (AUTO) 0.6 (0.2-0.8); MONOCYTES % 5.9 % (4.4-11.3); NEUTROPHILS % 68.7 % (38.7-80.0); PLATELET COUNT 239 x10e3/uL (140-360); RED BLOOD COUNT 5.27 x10e6/uL (4.3-5.7); RED CELL DISTRIBUTION WIDTH 13.1 % (11.7-14.4)
[2018-08-06 12:35] LABS: ALANINE AMINOTRANSFERASE 49 IU/L (0-55); ALBUMIN 3.7 g/dL (3.5-5.0); ALKALINE PHOSPHATASE 66 IU/L (40-150); AMYLASE 75 U/L (25-125); ANION GAP 13.9 mmol/L (8-16); BLOOD UREA NITROGEN 14 mg/dL (7-26); BUN/CREATININE RATIO 13 (6-25); CALCIUM 9.5 mg/dL (8.4-10.2); CARBON DIOXIDE 23 mmol/L (22-29); CHLORIDE 103 mmol/L (98-107); CREATINE KINASE 116 IU/L (30-200); CREATININE, SERUM 1.05 mg/dL (0.72-1.25); EST GLOMERULAR FILTRATION RATE > 60 ML/MIN (60-); GLUCOSE 141 mg/dL (74-118); LIPASE 25 U/L (8-78); POTASSIUM 3.9 mmol/L (3.5-5.1); SODIUM 136 mmol/L (136-145)
[2018-08-06 12:36] LABS: INR 0.99; PARTIAL THROMBOPLASTIN TIME 27.9 seconds (23.8-35.5)
[2018-08-06 13:00] LABS: THYROID STIMULATING HORMONE 1.509 uIU/mL (0.350-4.940)
[2018-08-06 14:15] LABS: BILIRUBIN,URINE NEGATIVE (NEGATIVE); CLARITY,URINE CLEAR (CLEAR); COLOR,URINE YELLOW (YELLOW); KETONES,URINE NEGATIVE (NEGATIVE); LEUKOCYTE ESTERASE ,URINE NEGATIVE (NEGATIVE); NITRITE,URINE NEGATIVE (NEGATIVE); PROTEIN,URINE DIPSTICK NEGATIVE (NEGATIVE); URINE UROBILINOGEN 0.2 mg/dL (0.2 - 1)
[2018-08-06 14:25] LABS: BACTERIA,URINE MODERATE /HPF; EPITHELIAL CELLS,URINE MODERATE /LPF
--- NOTE | 2018-08-06 14:50 | Diagnostic Imaging Report ---
EXAM: CT Abdomen and Pelvis WITH contrast INDICATION: Pain COMPARISON: None. TECHNIQUE: Abdomen and Pelvis was scanned utilizing a multidetector helical scanner after administration of IV contrast. Coronal and sagittal reformations were obtained. IV CONTRAST: 100 mL Isovue-370 COMPLICATIONS: None RADIATION DOSE: Total DLP:1452 mGy*cm Estimated effective dose: (DLP x 0.015 x size factor) mSv CTDIvol has been reviewed. It is below the limits set by the Radiation Protocol Committee (RPC). Appropriate CT dose reduction techniques were utilized. FINDINGS: Abdomen: Lung Bases: Atelectasis. Solid Organs: Moderate hepatic steatosis noted. Otherwise, liver, adrenals, kidneys, spleen, and pancreas unremarkable. Upper GI Tract: Gastric decompression limits evaluation. No small bowel obstructive changes. Vascularity: Mild aortic vascular calcifications with no aneurysm. Lymph Nodes: No suspicious adenopathy. Other: No free fluid or free air. Pelvis: Bladder: Decompressed, limiting evaluation. Other: None. Colon: There is a focal loop of distal sigmoid colon that is minimally distended with gas measuring up to 53 mm. Proximal and distal colon decompressed. No inflammatory changes are identified. There are a few tiny diverticula only with no distinct evidence of diverticulitis. Bones: No acute findings. IMPRESSION: 1. Focal loop of distal sigmoid colon gas-filled, nonspecific. 2. No distinct CT evidence of diverticulitis. 3. Hepatic steatosis. Signed by: Dr. Tristan Fowler MD on 08/06/2018 2:47 PM
[2018-08-06] MEDS ORDERED: BELLADONNA ALK/PHENOBARBITAL 5 ML UDC PO SCH (15:00)
[2018-08-06] MEDS ORDERED: SODIUM CHLORIDE 0.9% 50ML 50 ML ONE (15:02)
[2018-08-06] MEDS ORDERED: IOPAMIDOL 370 MG/ML 200 ML INFUS..BTL INJ ONE (15:02)
== END 2018-08-06 15:45 | disposition home or self-care (01) ==
LOC: ER 10:48
DX: R10.11 Right upper quadrant pain (principal); R10.13 Epigastric pain; R11.0 Nausea; R73.9 Hyperglycemia, unspecified; I10 Essential (primary) hypertension; J45.909 Unspecified asthma, uncomplicated; K21.9 Gastro-esophageal reflux disease without esophagitis; F32.9 Major depressive disorder, single episode, unspecified
CPT/HCPCS: 36415; 71046; 74177; 76705; 80053; 81001; 82150; 82550; 82553; 83690; 84443; 84484; 85025; 85610; 85730; 87086; 93005; 96374; 96375; 96376; 99284; J2270; J2405; J7030; Q9967

== ENCOUNTER → 2018-12-02 | Outpatient (CLI) | payer BC ==
--- NOTE | 2018-12-02 17:00 | Diagnostic Imaging Report ---
EXAM: CT Chest without contrast INDICATION: Follow-up pulmonary nodule. COMPARISON: CT Chest 07/13/2018. TECHNIQUE: Chest was scanned utilizing a multidetector helical scanner from the lung apex through the level of the adrenal glands without administration of IV contrast. Coronal and sagittal reformations were obtained. Routine protocol was performed. IV CONTRAST: 100 mL of Omnipaque 300 RADIATION DOSE: Total DLP: 981.7 mGy*cm Dose modulation, iterative reconstruction, and/or weight based adjustment of the mA/kV was utilized to reduce the radiation dose to as low as reasonably achievable. COMPLICATIONS: None FINDINGS: LINES/ TUBES: None. LUNGS AND AIRWAYS: The central airways are patent. An 8 mm and a 6 mm pulmonary nodule in the left upper lobe (series 3, images 23 and 18) are unchanged compared to CT on 07/13/2018. Unchanged 3 mm pulmonary nodule along the left major fissure on image 33. Other scattered 1 to 2 mm pulmonary nodules are unchanged. No evidence of new or enlarging pulmonary nodules. Motion artifact partially limits evaluation at the lung bases. Mild patchy dependent atelectasis. No evidence of pneumonia or pulmonary edema. PLEURA: The pleural spaces are clear. HEART AND MEDIASTINUM: The thyroid gland is normal. No mediastinal, hilar or axillary lymphadenopathy. The heart is normal in size.. There is no pericardial effusion. Scattered aortic and coronary atherosclerotic calcifications. UPPER ABDOMEN: Limited non-contrast views of the upper abdomen demonstrates hepatic steatosis and small hiatal hernia. BONES/SOFT TISSUES: No acute osseous abnormality. No suspicious lytic or blastic lesions. IMPRESSION: Pulmonary nodules are unchanged from CT on 07/13/2018, measuring up to 8 mm in the left upper lobe. Recommend follow-up chest CT in 3-6 months. Signed by: Dr. Shannon Ornelas MD on 12/02/2018 4:56 PM
== END ==
LOC: CT 15:18
PROVIDERS: ATTEND Internal Medicine
DX: R91.8 Other nonspecific abnormal finding of lung field (principal)
CPT/HCPCS: 71250

== ENCOUNTER 2019-04-28 18:47 | Emergency (ER) | payer BC ==
[~2019-04-28] VITALS: Ht 193 cm; Wt 175.5 kg
--- OUTSIDE RECORDS SUMMARY | 2019-04-28 18:50 | XMS REPORT | Continuity of Care Document ---
Author Author [facility] [employer] [facility] Organization [facility] Address Unknown Phone Unavailable Care Team Providers Care Planning Engineer Name Role Phone [employer] Unavailable Unavailable Problems No Data Provided for This Section Medications No Data Provided for This Section Allergies, Adverse Reactions, Alerts No Known Medication Allergies Immunizations No Data Provided for This Section Results No Data Provided for This Section Pathology Reports No Data Provided for This Section Diagnostic Reports No Data Provided for This Section Consultation Notes No Data Provided for This Section Discharge Summaries No Data Provided for This Section History and Physicals No Data Provided for This Section Vital Signs No Data Provided for This Section Encounters Location Location Details Encounter Type Encounter Number Reason For Visit Attending Provider ADM Date DC Date Status Source Outpatient [id number] [facility] 12/08/2015 Active [facility] [place] Outpatient [id number] [facility] 12/26/2015 Active [facility] [place] [id number] LANA CARDOZO 05/10/2016 Active [facility] [place] Outpatient [id number] [facility]27[facility] Procedures No Data Provided for This Section Assessment and Plan No Data Provided for This Section Plan of Care No Data Provided for This Section Social History No Data Provided for This Section Family History No Data Provided for This Section Advance Directives No Data Provided for This Section Functional Status No Data Provided for This Section
[2019-04-28] MEDS ORDERED: PANTOPRAZOLE 40 MG 10ML VIAL IV ONE (19:06)
[2019-04-28] MEDS ORDERED: ONDANSETRON HCL INJ 2MG/ML 2ML 2 MG/ML VIAL IV ONE (19:06)
[2019-04-28] MEDS ORDERED: DICYCLOMINE HCL 20 MG/2 ML VIAL IM ONE (19:15)
[2019-04-28 19:18] LABS: BASOPHILS # (AUTO) 0.1 (0.0-0.1); BASOPHILS % 0.7 % (0.0-1.0); EOSINOPHILS # (AUTO) 0.4 (0.0-0.4); EOSINOPHILS % 3.7 % (0.0-6.0); HEMATOCRIT 46.1 % (38.2-49.6); HEMOGLOBIN 15.9 g/dL (14.0-18.0); LYMPHOCYTES # (AUTO) 2.9 (1.0-3.2); LYMPHOCYTES % 24.8 % (18.0-39.1); MEAN CORPUSCULAR HEMOGLOBIN 30.4 pg (28-32); MEAN CORPUSCULAR HGB CONC 34.5 g/dL (31-35); MEAN CORPUSCULAR VOLUME 88.1 fL (81-99); MONOCYTES # (AUTO) 0.7 (0.2-0.8); MONOCYTES % 6.1 % (4.4-11.3); NEUTROPHILS # (AUTO) 7.6 (2.1-6.9); NEUTROPHILS % 64.3 % (38.7-80.0); PLATELET COUNT 276 x10e3/uL (140-360); RED BLOOD COUNT 5.23 x10e6/uL (4.3-5.7); RED CELL DISTRIBUTION WIDTH 12.7 % (11.7-14.4)
[2019-04-28 19:35] LABS: ALANINE AMINOTRANSFERASE 29 IU/L (0-55); ALBUMIN 3.6 g/dL (3.5-5.0); ALBUMIN/GLOBULIN RATIO 0.9 (0.8-2.0); ALKALINE PHOSPHATASE 83 IU/L (40-150); ANION GAP 12.8 mmol/L (8-16); BLOOD UREA NITROGEN 8 mg/dL (7-26); BUN/CREATININE RATIO 10 (6-25); CALCIUM 9.2 mg/dL (8.4-10.2); CARBON DIOXIDE 23 mmol/L (22-29); CHLORIDE 105 mmol/L (98-107); CREATINE KINASE 205 IU/L (30-200); CREATININE, SERUM 0.83 mg/dL (0.72-1.25); EST GLOMERULAR FILTRATION RATE > 60 ML/MIN (60-); GLUCOSE 93 mg/dL (74-118); POTASSIUM 3.8 mmol/L (3.5-5.1); SODIUM 137 mmol/L (136-145)
[2019-04-28 19:50] LABS: AMYLASE 77 U/L (25-125); LIPASE 28 U/L (8-78)
--- NOTE | 2019-04-28 21:05 | Diagnostic Imaging Report ---
RIGHT UPPER QUADRANT ULTRASOUND TECHNIQUE: Ultrasound evaluation of the right upper quadrant abdomen. Color Doppler evaluation was utilized to supplement the evaluation. HISTORY: Right upper quadrant pain COMPARISON: Right upper quadrant ultrasound August 06, 2018 DISCUSSION: LIVER: No focal lesion identified. The liver measures 18 cm in length in the right mid-clavicular line. Diffusely increased liver echogenicity. BILIARY: No gallbladder stone, wall thickening, or pericholecystic fluid. The sonographic Ledesma's sign is reported as negative. Common bile duct measures 0.5 cm. RIGHT KIDNEY: 14 cm in length. No hydronephrosis, solid mass, or cystic lesion identified. PANCREAS: Partially obscured by regional bowel gas, but no abnormality identified within this limitation. PERITONEUM: No free fluid. VASCULATURE: The aorta and IVC are not optimally visualized secondary to overlying bowel gas. The portal vein is patent with hepatopedal flow. IMPRESSION: 1. No acute sonographic abnormality. 2. No significant interval change, hepatomegaly with probably hepatic steatosis. Signed by: Ranjit Zepeda.O., M.M.M. on 04/28/2019 9:02 PM
[2019-04-28 21:19] LABS: BILIRUBIN,URINE NEGATIVE (NEGATIVE); CLARITY,URINE SL CLOUDY (CLEAR); COLOR,URINE YELLOW (YELLOW); KETONES,URINE NEGATIVE (NEGATIVE); LEUKOCYTE ESTERASE ,URINE NEGATIVE (NEGATIVE); NITRITE,URINE NEGATIVE (NEGATIVE); PROTEIN,URINE DIPSTICK NEGATIVE (NEGATIVE); URINE UROBILINOGEN 0.2 mg/dL (0.2 - 1)
[2019-04-28 21:26] LABS: BACTERIA,URINE MODERATE /HPF; EPITHELIAL CELLS,URINE MODERATE /LPF; WBC,URINE (MAN) 0-5 /HPF (0-5)
[2019-04-28] MEDS ORDERED: SODIUM CHLORIDE 0.9% 50ML 50 ML ONE (22:27)
[2019-04-28] MEDS ORDERED: IOPAMIDOL 370 MG/ML 200 ML INFUS..BTL INJ ONE (22:27)
--- NOTE | 2019-04-28 22:37 | Diagnostic Imaging Report ---
EXAM: CT of the abdomen and pelvis WITH contrast HISTORY: Upper abdominal pain, severe, nausea and vomiting, history of hernia repair COMPARISON: CT of the abdomen and pelvis August 06, 2018. TECHNIQUE: The abdomen and pelvis were scanned utilizing a multidetector helical scanner. Coronal and sagittal reformats are provided. PROTOCOL: Routine IV CONTRAST: 100 cc of Isovue-300. ORAL CONTRAST: None, which limits sensitivity and specificity of the exam. RADIATION DOSE: Total DLP: 1538.01 mGy*cm Estimated effective dose: (DLP x 0.015 x size factor) Dose modulation, iterative reconstruction, and/or weight based adjustment of the mA/kV was utilized to reduce the radiation dose to as low as reasonably achievable. COMPLICATIONS: None FINDINGS: LOWER THORAX: Incidentally, stable 8 mm left lower lobe pulmonary nodule. HEPATOBILIARY: Hepatic steatosis. No mass. No biliary dilation. No calcified gallstone. SPLEEN: No splenomegaly. PANCREAS: No focal masses or ductal dilatation. Subtle fat stranding adjacent to the pancreas. No fluid collection. ADRENALS: No discrete adrenal nodule. KIDNEYS/URETERS: No hydronephrosis, stones, or definite solid mass lesions. PELVIC ORGANS/BLADDER: The urinary bladder is decompressed, which limits evaluation. GI TRACT: No dilation or wall thickening identified. The appendix is normal. PERITONEUM / RETROPERITONEUM: No free air or fluid. LYMPH NODES: No pathologically enlarged lymph node. VESSELS: Diffuse scattered atherosclerotic vascular calcifications. BONES: No aggressive osseous lesion or acute fracture. SOFT TISSUES: Small bilateral fat-containing inguinal hernias versus lipomatosis of the spermatic cords. IMPRESSION: 1. Subtle fat stranding about the pancreas, correlate for acute pancreatitis. 2. Hepatic steatosis. 3. Incidental stable 8 mm left lower lobe pulmonary nodule. If the patient is at increased risk for cancer such as a known history of malignancy or significant smoking history, a CT of the chest without contrast is advised in one year to complete surveillance follow-up. Signed by: Dr. Aaron Lopez D.O., M.M.M. on 04/28/2019 10:34 PM
[2019-04-29 00:08] VITALS: BP 152/86
[2019-04-30] MEDS ORDERED: DIOVAN320 MG PO (15:38)
[2019-04-30] MEDS ORDERED: GLIPIZIDE5 MG PO (15:38)
[2019-04-30] MEDS ORDERED: AMLODIPINE BESY10 MG PO (15:39)
[2019-04-30] MEDS ORDERED: MELOXICAM7.5 MG PO (15:40)
[2019-04-30] MEDS ORDERED: NAPROXEN500 MG PO (15:40)
[2019-04-30] MEDS ORDERED: PANTOPRAZOLE SO40 MG PO (15:41)
[2019-04-30] MEDS ORDERED: DICYCLOMINE HCL20 MG PO (15:42)
== END 2019-04-29 00:27 | disposition home or self-care (01) ==
LOC: ER 18:47
DX: K29.00 Acute gastritis without bleeding (principal); R10.13 Epigastric pain; I10 Essential (primary) hypertension; E11.9 Type 2 diabetes mellitus without complications; K21.9 Gastro-esophageal reflux disease without esophagitis; J45.909 Unspecified asthma, uncomplicated; Z79.84 Long term (current) use of oral hypoglycemic drugs; Z79.82 Long term (current) use of aspirin
CPT/HCPCS: 36415; 74177; 76705; 80053; 81001; 82150; 82550; 82553; 83690; 84484; 85025; 93005; 99284; C9113; J0500; J2405; Q9967

== ENCOUNTER → 2019-05-01 | Day surgery (SDC) | payer BC ==
[~2019-05-01] MED LIST changes: +AMLODIPINE BESY10 MG PO; +DICYCLOMINE HCL20 MG PO; +DIOVAN320 MG PO; +GLIPIZIDE5 MG PO; +KETAMINE HCL INJ 50 MG/ML 10 ML VIAL ONE; +LIDOCAINE HCL 2% LOCAL INJ 5 ML SDV VIAL INJ ONE; +MELOXICAM7.5 MG PO; +MIDAZOLAM HCL 2 MG/2 ML VIAL ONE; +NAPROXEN500 MG PO; +PANTOPRAZOLE 40 MG 10ML VIAL ONE; +PANTOPRAZOLE SO40 MG PO; +PROPOFOL IV EMULSION 10 MG/ML 50 ML VIAL ONE; +SODIUM CHLORIDE 0.9% 50ML 50 ML ONE
--- OUTSIDE RECORDS SUMMARY | 2019-05-01 06:03 | XMS REPORT | Continuity of Care Document ---
Author Author [facility] Organization [facility] Address Unknown Phone Unavailable Care Team Providers Care Business Support Liaison Name Role Phone [employer] Information [employer] Unavailable Unavailable Problems No Data Provided for [...] ADM Date DC Date Status Source Outpatient [id number] [facility] 12/08/2015 Active [facility] Outpatient [id number] ECHO VISIT 12/26/2015 Active [facility] [place] [id number] LANA CARDOZO 05/10/2016 Active [facility] Outpatient [id number] [facility] Procedures No Data Provided for [...]
[2019-05-01 08:15] VITALS: BP 133/78
--- NOTE | 2019-05-01 11:31 | Operative Report ---
DATE OF PROCEDURE: 05/01/2019 SURGEON: Joni Cade MD PROCEDURE: EGD with biopsies. INDICATIONS FOR PROCEDURE: Upper abdominal pain, nausea. MEDICATIONS: The patient was done under MAC, please see anesthesiologist's note. PROCEDURE IN DETAIL: With the patient in left lateral decubitus position, flexible fiberoptic Olympus gastroscope was introduced into the esophagus under direct visualization without any difficulty. There was some patchy erythema noted in distal esophagus. The scope was then advanced with ease into the stomach and the mucosa overlying the antrum and the body revealed some diffuse erythema and moderate edema and biopsies were obtained, and sent to stain for H. pylori. A large approximately 1.8 cm ulcer was noted in the distal body along the posterior wall with heaped up margins without active bleeding or stigmata of recent hemorrhage and biopsies were obtained. An approximately 8 mm submucosal nodule was noted in the proximal antrum along the anterior wall and biopsies were obtained. The pylorus appeared to be of normal contour and shape was intubated with ease and the scope was advanced all the way to the second portion of the duodenum. Biopsies were obtained from the second portion and duodenal bulb to rule out sprue. The scope was then withdrawn back into the stomach and retroflexed mucosa overlying the fundus and the cardia appeared to be within normal limits. The scope was then straightened out, it was subsequently withdrawn. The patient tolerated the procedure well. IMPRESSION: 1. Distal esophagitis, mild. 2. Gastritis, biopsied, biopsies sent to stain for Helicobacter pylori. 3. Gastric ulcer approximately 1.8 cm in size, distal body posterior wall with heaped up margins without active bleeding or stigmata of recent hemorrhage, biopsies obtained. 4. Approximately 8 mm submucosal nodule proximal antrum anterior wall, biopsied. 5. Rule out sprue. PLAN: Follow up histology. Increase Protonix to 40 mg one p.o. a.c. b.i.d. Start Carafate 1 g p.o. a.c. t.i.d. and at bedtime and discontinue NSAIDs. Joni Cade MD [facility][id number] cc: Yarelis Shaw MD
== END | disposition home or self-care (01) ==
LOC: OR 06:02
PROVIDERS: ATTEND Internal Medicine Gastroenterology
DX: K29.50 Unspecified chronic gastritis without bleeding (principal); K20.9 Esophagitis, unspecified; K25.9 Gastric ulcer, unspecified as acute or chronic, without hemorrhage or perforation; B96.81 Helicobacter pylori [H. pylori] as the cause of diseases classified elsewhere; R10.10 Upper abdominal pain, unspecified; R11.0 Nausea; Z68.42 Body mass index [BMI] 45.0-49.9, adult; I10 Essential (primary) hypertension; Z72.0 Tobacco use; Z80.0 Family history of malignant neoplasm of digestive organs; G47.33 Obstructive sleep apnea (adult) (pediatric); E11.9 Type 2 diabetes mellitus without complications; Z79.82 Long term (current) use of aspirin
CPT/HCPCS: 43239; C9113; J2001; J2250; J2704

== ENCOUNTER → 2019-06-23 | Outpatient (CLI) | payer BC ==
[~2019-06-23] MED LIST changes: -KETAMINE HCL INJ 50 MG/ML 10 ML VIAL ONE; -LIDOCAINE HCL 2% LOCAL INJ 5 ML SDV VIAL INJ ONE; -MIDAZOLAM HCL 2 MG/2 ML VIAL ONE; -PANTOPRAZOLE 40 MG 10ML VIAL ONE; -PROPOFOL IV EMULSION 10 MG/ML 50 ML VIAL ONE; -SODIUM CHLORIDE 0.9% 50ML 50 ML ONE
--- NOTE | 2019-06-23 11:04 | Diagnostic Imaging Report ---
Right shoulder, 2 views. History: Right shoulder pain for 2 weeks. Findings: The soft tissues are normal. Bone mineralization is normal. There is no evidence of fracture, AC separation, or dislocation. There are no lytic or sclerotic lesions. There are mild degenerative changes of the right AC and glenohumeral joints. IMPRESSION: Mild degenerative changes of the right shoulder. Signed by: Bull Sosa on 06/23/2019 11:00 AM
== END ==
LOC: RAD 10:00
PROVIDERS: ATTEND Internal Medicine
DX: M19.011 Primary osteoarthritis, right shoulder (principal)

== ENCOUNTER → 2019-07-06 | Day surgery (SDC) | payer BC ==
[~2019-07-06] MED LIST changes: +FENTANYL CITRATE/PF 100MCG/2 ML INJ ONE; +LIDOCAINE HCL 2% LOCAL INJ 5 ML SDV VIAL INJ ONE; +MIDAZOLAM HCL 2 MG/2 ML VIAL ONE; +PROPOFOL IV EMULSION 10 MG/ML 50 ML VIAL ONE
--- OUTSIDE RECORDS SUMMARY | 2019-07-06 07:42 | XMS REPORT | Continuity of Care Document ---
Author Author [employer] Organization [employer] Address Unknown Phone Unavailable Care Team Providers Care Distribution Driver Name Role Phone [employer] Unavailable Unavailable Problems No Data Provided for [...] ADM Date DC Date Status Source Outpatient [id number] [facility] 12/08/2015 Active [facility] Outpatient [id number] ECHO VISIT 12/26/2015 Active [facility] [place] [id number] LANA CARDOZO 05/10/2016 Active [facility] Outpatient [id number] [facility]27/[facility] Procedures No Data Provided for This Section [...]
[2019-07-06 09:10] VITALS: BP 117/74
--- NOTE | 2019-07-06 15:39 | Operative Report ---
DATE OF PROCEDURE: 07/06/2019 SURGEON: Joni Cade MD PROCEDURE: EGD with biopsies. INDICATIONS FOR EGD: History of large gastric ulcer. MEDICATIONS: The patient was done under MAC, please see anesthesiologist's note. PROCEDURE IN DETAIL: With the patient in left lateral decubitus position, flexible fiberoptic Olympus gastroscope was introduced into the esophagus under direct visualization without any difficulty. There was some patchy erythema noted in distal esophagus. Minute tongues of velvety red mucosa were noted to extend proximally from the GE junction. Biopsies were obtained to rule out Stiles. The scope was then advanced with ease into the stomach. Mucosa overlying the antrum and the body revealed some diffuse erythema and moderate edema and biopsies were obtained and sent to stain for H pylori. The previously described gastric ulcer appeared to be well healed. An approximately 8 mm submucosal nodule, which was described previously was re-biopsied. Pylorus was of normal contour and shape, it was intubated with ease and the scope was advanced all the way to the second portion of the duodenum. The scope was then withdrawn slowly and mucosa overlying the proximal second portion and the duodenal bulb appeared to be within normal limits. The scope was then withdrawn back into the stomach and retroflexed. Mucosa overlying the fundus and cardia appeared to be within normal limits. The scope was then straightened out. The stomach was decompressed. The scope was subsequently withdrawn. The patient tolerated the procedure well. IMPRESSION: 1. Distal esophagitis, mild. 2. Rule out Stiles esophagus. 3. Gastritis, biopsied. Biopsies sent to stain for Helicobacter pylori. The patient already has receded full course of Prevpac for Helicobacter pylori, which was noted on the previous esophagogastroduodenoscopy. 4. Previously described ulcer, well healed. 5. Approximately 8 mm submucosal nodule, antrum, described previously was re-biopsied. PLAN: Follow up histology. Continue Protonix 40 mg one p.o. q.a.m. a.c. Joni Cade MD [facility] [place] /[id number] cc: Yarelis Shaw MD
== END | disposition home or self-care (01) ==
LOC: OR 07:39
PROVIDERS: ATTEND Internal Medicine Gastroenterology
DX: K25.9 Gastric ulcer, unspecified as acute or chronic, without hemorrhage or perforation (principal); K21.0 Gastro-esophageal reflux disease with esophagitis; K31.9 Disease of stomach and duodenum, unspecified; K29.50 Unspecified chronic gastritis without bleeding; G47.33 Obstructive sleep apnea (adult) (pediatric); E11.9 Type 2 diabetes mellitus without complications; I10 Essential (primary) hypertension
CPT/HCPCS: 43239; J2001; J2250; J2704; J3010

== ENCOUNTER 2019-07-29 14:11 | Outpatient (RCR) | payer BC ==
[~2019-07-29 14:11] MED LIST changes: -FENTANYL CITRATE/PF 100MCG/2 ML INJ ONE; -LIDOCAINE HCL 2% LOCAL INJ 5 ML SDV VIAL INJ ONE; -MIDAZOLAM HCL 2 MG/2 ML VIAL ONE; -PROPOFOL IV EMULSION 10 MG/ML 50 ML VIAL ONE
== END 2019-08-13 ==
LOC: PT 14:11
PROVIDERS: ATTEND Specialist
DX: M75.41 Impingement syndrome of right shoulder (principal)

== ENCOUNTER → 2020-02-24 | Outpatient (CLI) | payer BC ==
[~2020-02-24] MED LIST changes: +AUGMENTIN 875-1 EACH PO
[2020-02-24 10:50] LABS: BASOPHILS # (AUTO) 0.1 (0.0-0.1); BASOPHILS % 0.6 % (0.0-1.0); EOSINOPHILS # (AUTO) 0.3 (0.0-0.4); EOSINOPHILS % 3.2 % (0.0-6.0); HEMATOCRIT 49.4 % (38.2-49.6); HEMOGLOBIN 16.1 g/dL (14.0-18.0); LYMPHOCYTES % 29.7 % (18.0-39.1); MEAN CORPUSCULAR HEMOGLOBIN 28.9 pg (28-32); MEAN CORPUSCULAR HGB CONC 32.6 g/dL (31-35); MEAN CORPUSCULAR VOLUME 88.5 fL (81-99); MONOCYTES # (AUTO) 0.5 (0.2-0.8); MONOCYTES % 5.4 % (4.4-11.3); NEUTROPHILS % 60.8 % (38.7-80.0); PLATELET COUNT 245 x10e3/uL (140-360); RED BLOOD COUNT 5.58 x10e6/uL (4.3-5.7); RED CELL DISTRIBUTION WIDTH 14.4 % (11.7-14.4)
[2020-02-24 11:15] LABS: ALANINE AMINOTRANSFERASE 34 IU/L (0-55); ALBUMIN 3.8 g/dL (3.5-5.0); ALKALINE PHOSPHATASE 79 IU/L (40-150); ANION GAP 14.2 mmol/L (8-16); BLOOD UREA NITROGEN 12 mg/dL (7-26); BUN/CREATININE RATIO 13 (6-25); CALCIUM 8.9 mg/dL (8.4-10.2); CARBON DIOXIDE 21 mmol/L (22-29); CHLORIDE 108 mmol/L (98-107); CHOL/HDL RATIO 5.6 (3.9-4.7); CHOLESTEROL 162 MD/DL (0-199); CREATININE, SERUM 0.94 mg/dL (0.72-1.25); EST GLOMERULAR FILTRATION RATE > 60 ML/MIN (60-); GLUCOSE 118 mg/dL (74-118); HDL CHOLESTEROL 29 MG/DL (40-60); LDL CHOLESTEROL 102 MG/DL (60-130); POTASSIUM 4.2 mmol/L (3.5-5.1); SODIUM 139 mmol/L (136-145); TRIGLYCERIDES 153 MG/DL (0-149)
[2020-02-24 11:19] LABS: CLARITY,URINE CLEAR (CLEAR); COLOR,URINE YELLOW (YELLOW); LEUKOCYTE ESTERASE ,URINE NEGATIVE (NEGATIVE); NITRITE,URINE NEGATIVE (NEGATIVE); PROTEIN,URINE DIPSTICK NEGATIVE (NEGATIVE)
[2020-02-24 11:20] LABS: BILIRUBIN,URINE NEGATIVE (NEGATIVE); KETONES,URINE NEGATIVE (NEGATIVE); URINE UROBILINOGEN 0.2 mg/dL (0.2 - 1)
[2020-02-24 11:32] LABS: BACTERIA,URINE RARE /HPF; EPITHELIAL CELLS,URINE FEW /LPF; RBC,URINE 0-5 /HPF (0-5); WBC,URINE (MAN) 0-5 /HPF (0-5)
== END ==
LOC: LAB 10:04
PROVIDERS: ATTEND Internal Medicine
DX: Z00.00 Encounter for general adult medical examination without abnormal findings (principal); E11.8 Type 2 diabetes mellitus with unspecified complications; E78.5 Hyperlipidemia, unspecified; M89.9 Disorder of bone, unspecified; I10 Essential (primary) hypertension; R53.83 Other fatigue
CPT/HCPCS: 36415; 80053; 80061; 81001; 82044; 82306; 82570; 83036; 84403; 84443; 85025

== ENCOUNTER → 2020-10-20 | Outpatient (CLI) | payer OTHER ==
[~2020-10-20] MED LIST changes: +COVID-19 VACC, MRNA(MODERNA)/PF 100 MCG/0.5 ML VIAL IM ONE
== END ==
LOC: VACCPMC 18:30
DX: Z23 Encounter for immunization (principal); Z20.822 Contact with and (suspected) exposure to COVID-19

== ENCOUNTER 2020-11-07 15:58 | Outpatient (RCR) | payer BC ==
[~2020-11-07 15:58] MED LIST changes: -COVID-19 VACC, MRNA(MODERNA)/PF 100 MCG/0.5 ML VIAL IM ONE
== END 2020-11-13 ==
LOC: PT 15:58
PROVIDERS: ATTEND Specialist
DX: M75.41 Impingement syndrome of right shoulder (principal)

== ENCOUNTER → 2020-11-20 | Outpatient (CLI) | payer OTHER ==
[~2020-11-20] MED LIST changes: +COVID-19 VACC, MRNA(MODERNA)/PF 100 MCG/0.5 ML VIAL IM ONE
== END | DRG 951 ==
LOC: VACCPMC 11:40
DX: Z23 Encounter for immunization (principal); Z20.822 Contact with and (suspected) exposure to COVID-19
CPT/HCPCS: 0012A; 91301

== ENCOUNTER 2020-11-21 14:01 | Outpatient (RCR) | payer BC ==
[~2020-11-21 14:01] MED LIST changes: -COVID-19 VACC, MRNA(MODERNA)/PF 100 MCG/0.5 ML VIAL IM ONE
== END 2020-12-11 ==
LOC: PT 14:01
PROVIDERS: ATTEND Specialist
DX: M25.512 Pain in left shoulder (principal); M75.42 Impingement syndrome of left shoulder; M25.612 Stiffness of left shoulder, not elsewhere classified; M54.12 Radiculopathy, cervical region

== ENCOUNTER 2021-01-09 17:10 | Outpatient (RCR) | payer BC | END 2021-01-11 | LOC: PT 17:10 | PROVIDERS: ATTEND Specialist | DX: M75.41 Impingement syndrome of right shoulder (principal); M54.12 Radiculopathy, cervical region ==

== ENCOUNTER 2021-01-29 06:55 | Emergency (ER) | payer BC ==
[~2021-01-29] VITALS: Ht 193 cm; Wt 174.6 kg
[2021-01-29] MEDS ORDERED: DOXYCYCLINE HY100 MG PO (07:06)
== END 2021-01-29 07:30 | disposition home or self-care (01) ==
LOC: ER 07:00
DX: L03.115 Cellulitis of right lower limb (principal); I10 Essential (primary) hypertension; E11.9 Type 2 diabetes mellitus without complications; J45.909 Unspecified asthma, uncomplicated; F17.210 Nicotine dependence, cigarettes, uncomplicated
CPT/HCPCS: 99282

== ENCOUNTER 2021-01-30 11:00 | Outpatient (RCR) | payer BC ==
[~2021-01-30 11:00] MED LIST changes: +DOXYCYCLINE HY100 MG PO
== END 2021-02-10 ==
LOC: PT 11:00
PROVIDERS: ATTEND Specialist
DX: M75.41 Impingement syndrome of right shoulder (principal); M54.12 Radiculopathy, cervical region

== ENCOUNTER 2021-02-13 14:21 | Emergency (ER) | payer BC ==
[~2021-02-13] VITALS: Ht 193 cm; Wt 174.6 kg
== END 2021-02-13 15:00 | disposition home or self-care (01) ==
LOC: ER 14:35
DX: L03.115 Cellulitis of right lower limb (principal); M79.89 Other specified soft tissue disorders; I10 Essential (primary) hypertension; E11.9 Type 2 diabetes mellitus without complications; J45.909 Unspecified asthma, uncomplicated
CPT/HCPCS: 93971; 99283

== ENCOUNTER → 2021-02-14 | Outpatient (CLI) | payer BC ==
[2021-02-14 11:15] LABS: BASOPHILS # (AUTO) 0.1 (0.0-0.1); BASOPHILS % 0.7 % (0.0-1.0); EOSINOPHILS # (AUTO) 0.3 (0.0-0.4); EOSINOPHILS % 3.6 % (0.0-6.0); HEMATOCRIT 52.1 % (38.2-49.6); HEMOGLOBIN 17.5 g/dL (14.0-18.0); LYMPHOCYTES # (AUTO) 2.9 (1.0-3.2); LYMPHOCYTES % 30.8 % (18.0-39.1); MEAN CORPUSCULAR HEMOGLOBIN 30.9 pg (28-32); MEAN CORPUSCULAR HGB CONC 33.6 g/dL (31-35); MEAN CORPUSCULAR VOLUME 91.9 fL (81-99); MONOCYTES # (AUTO) 0.7 (0.2-0.8); MONOCYTES % 7.3 % (4.4-11.3); NEUTROPHILS # (AUTO) 5.3 (2.1-6.9); NEUTROPHILS % 57.2 % (38.7-80.0); PLATELET COUNT 210 x10e3/uL (140-360); RED BLOOD COUNT 5.67 x10e6/uL (4.3-5.7); RED CELL DISTRIBUTION WIDTH 13.7 % (11.7-14.4)
[2021-02-14 11:19] LABS: CLARITY,URINE CLEAR (CLEAR); COLOR,URINE YELLOW (YELLOW); KETONES,URINE NEGATIVE (NEGATIVE); LEUKOCYTE ESTERASE ,URINE NEGATIVE (NEGATIVE); NITRITE,URINE NEGATIVE (NEGATIVE); PROTEIN,URINE DIPSTICK NEGATIVE (NEGATIVE); URINE UROBILINOGEN 0.2 mg/dL (0.2 - 1)
[2021-02-14 11:27] LABS: EPITHELIAL CELLS,URINE FEW /LPF; RBC,URINE 0-5 /HPF (0-5); WBC,URINE (MAN) 0-5 /HPF (0-5)
[2021-02-14 11:28] LABS: MUCUS,URINE FEW (RARE)
[2021-02-14 11:39] LABS: ALANINE AMINOTRANSFERASE 36 IU/L (0-55); ALBUMIN 3.6 g/dL (3.5-5.0); ALBUMIN/GLOBULIN RATIO 1.1 (0.8-2.0); ALKALINE PHOSPHATASE 61 IU/L (40-150); ANION GAP 13.1 mmol/L (8-16); BLOOD UREA NITROGEN 9 mg/dL (7-26); BUN/CREATININE RATIO 10 (6-25); CALCIUM 8.9 mg/dL (8.4-10.2); CARBON DIOXIDE 23 mmol/L (22-29); CHLORIDE 108 mmol/L (98-107); CHOL/HDL RATIO 3.8 (3.9-4.7); CHOLESTEROL 121 MD/DL (0-199); CREATININE, SERUM 0.87 mg/dL (0.72-1.25); EST GLOMERULAR FILTRATION RATE > 60 ML/MIN (60-); GLUCOSE 110 mg/dL (74-118); HDL CHOLESTEROL 32 MG/DL (40-60); LDL CHOLESTEROL 41 MG/DL (60-130); POTASSIUM 4.1 mmol/L (3.5-5.1); SODIUM 140 mmol/L (136-145); TRIGLYCERIDES 240 MG/DL (0-149)
[2021-02-14 11:58] LABS: THYROID STIMULATING HORMONE 1.919 uIU/mL (0.350-4.940)
== END ==
LOC: LAB 10:50
PROVIDERS: ATTEND Internal Medicine
DX: Z00.00 Encounter for general adult medical examination without abnormal findings (principal); E11.8 Type 2 diabetes mellitus with unspecified complications; E78.5 Hyperlipidemia, unspecified; M89.9 Disorder of bone, unspecified; I10 Essential (primary) hypertension
CPT/HCPCS: 36415; 80053; 80061; 81001; 82044; 82570; 83036; 84443; 85025

== ENCOUNTER 2021-03-06 09:56 | Outpatient (RCR) | payer BC | END 2021-03-13 | LOC: PT 09:56 | PROVIDERS: ATTEND Specialist | CPT/HCPCS: 97139 ==

== ENCOUNTER 2021-03-23 08:03 | Outpatient (RCR) | payer BC | END 2021-04-12 | LOC: PT 08:03 | PROVIDERS: ATTEND Specialist | DX: M75.41 Impingement syndrome of right shoulder (principal); M54.12 Radiculopathy, cervical region ==

== ENCOUNTER → 2021-12-29 | Outpatient (CLI) | payer BC | LOC: RAD 08:54 | PROVIDERS: ATTEND Family Medicine | DX: J81.1 Chronic pulmonary edema (principal) | CPT/HCPCS: 93306 ==

== ENCOUNTER → 2022-03-15 | Outpatient (CLI) | payer BC | LOC: SLEEP 19:36 | PROVIDERS: ATTEND Family Medicine | DX: G47.33 Obstructive sleep apnea (adult) (pediatric) (principal) | CPT/HCPCS: 95811 ==

== ENCOUNTER 2022-04-07 12:00 | Emergency (ER) | payer BC ==
[~2022-04-07] VITALS: Ht 193 cm; Wt 163.3 kg
[2022-04-07] MEDS ORDERED: ALBUTEROL/IPRATROPIUM 3 ML NEB NEB ONE (12:30)
[2022-04-07] MEDS ORDERED: METHYLPREDNISOLONE SOD SUCC 125 MG/2ML VIAL IV ONE (12:30)
[2022-04-07] MEDS ORDERED: SODIUM CHLORIDE 0.9% 1000ML 1,000 ML IV SCH (12:30)
[2022-04-07 12:37] LABS: BASOPHILS % 0.7 % (0.0-1.0); EOSINOPHILS # (AUTO) 0.1 (0.0-0.4); EOSINOPHILS % 0.9 % (0.0-6.0); HEMATOCRIT 48.1 % (38.2-49.6); HEMOGLOBIN 15.9 g/dL (14.0-18.0); LYMPHOCYTES # (AUTO) 1.1 (1.0-3.2); LYMPHOCYTES % 20.5 % (18.0-39.1); MEAN CORPUSCULAR HEMOGLOBIN 31.7 pg (28-32); MEAN CORPUSCULAR HGB CONC 33.1 g/dL (31-35); MEAN CORPUSCULAR VOLUME 95.8 fL (81-99); MONOCYTES # (AUTO) 0.6 (0.2-0.8); MONOCYTES % 11.4 % (4.4-11.3); NEUTROPHILS # (AUTO) 3.6 (2.1-6.9); NEUTROPHILS % 65.9 % (38.7-80.0); PLATELET COUNT 143 x10e3/uL (140-360); RED BLOOD COUNT 5.02 x10e6/uL (4.3-5.7); RED CELL DISTRIBUTION WIDTH 12.7 % (11.7-14.4)
[2022-04-07] MEDS ORDERED: ACETAMINOPHEN 325 MG TAB PO ONE (12:45)
[2022-04-07 12:47] LABS: INR 0.99
[2022-04-07 12:48] LABS: PARTIAL THROMBOPLASTIN TIME 29.8 seconds (23.8-35.5)
[2022-04-07 12:56] LABS: ALBUMIN 3.4 g/dL (3.5-5.0); ANION GAP 13.8 mmol/L (8-16); CALCIUM 8.2 mg/dL (8.4-10.2); CREATININE, SERUM 1.1 mg/dL (0.72-1.25); POTASSIUM 3.8 mmol/L (3.5-5.1)
[2022-04-07] MEDS ORDERED: IOPAMIDOL 370 MG/ML 100 ML INFUS..BTL INJ ONE (13:21)
[2022-04-07] MEDS ORDERED: BENZONATATE100 MG PO (15:09)
[2022-04-07] MEDS ORDERED: PROAIR HFA INH8.5 GM INH (15:09)
[2022-04-07] MEDS ORDERED: PAXLOVID 150-11 EACH PO (15:09)
[2022-04-07] MEDS ORDERED: DECADRON4 M1 PO (15:09)
[2022-04-07 15:56] VITALS: BP 134/81
== END 2022-04-07 15:25 | disposition home or self-care (01) ==
LOC: ER 12:25
DX: R50.9 Fever, unspecified (principal); U07.1 COVID-19; R06.00 Dyspnea, unspecified; R91.8 Other nonspecific abnormal finding of lung field; E11.65 Type 2 diabetes mellitus with hyperglycemia; I10 Essential (primary) hypertension; K76.0 Fatty (change of) liver, not elsewhere classified
CPT/HCPCS: 36415; 71045; 71260; 80053; 83605; 83880; 85025; 85610; 85730; 87040; 93005; 94640; 94799; 99284; J0456; J0696; J2930; J7030; J7050; Q9967; U0002

== ENCOUNTER 2022-04-09 09:07 | Emergency (ER) | payer BC ==
[~2022-04-09] VITALS: Ht 193 cm; Wt 163.3 kg
[~2022-04-09 09:07] MED LIST changes: +BENZONATATE100 MG PO; +DECADRON4 M1 PO; +PAXLOVID 150-11 EACH PO
[2022-04-09] MEDS ORDERED: SODIUM CHLORIDE 0.9% 1000ML 1,000 ML IV STA ×2 (09:44→09:45)
[2022-04-09] MEDS ORDERED: METHYLPREDNISOLONE SOD SUCC 125 MG/2ML VIAL IV ONE (09:45)
[2022-04-09 09:51] LABS: BASOPHILS % 0.2 % (0.0-1.0); EOSINOPHILS % 0.1 % (0.0-6.0); HEMATOCRIT 52.3 % (38.2-49.6); HEMOGLOBIN 17.1 g/dL (14.0-18.0); LYMPHOCYTES # (AUTO) 1.9 (1.0-3.2); LYMPHOCYTES % 16.7 % (18.0-39.1); MEAN CORPUSCULAR HEMOGLOBIN 31.7 pg (28-32); MEAN CORPUSCULAR HGB CONC 32.7 g/dL (31-35); MEAN CORPUSCULAR VOLUME 96.9 fL (81-99); MONOCYTES # (AUTO) 0.4 (0.2-0.8); MONOCYTES % 3.9 % (4.4-11.3); NEUTROPHILS # (AUTO) 8.7 (2.1-6.9); NEUTROPHILS % 78.6 % (38.7-80.0); PLATELET COUNT 188 x10e3/uL (140-360); RED CELL DISTRIBUTION WIDTH 12.7 % (11.7-14.4)
[2022-04-09 10:10] LABS: ALBUMIN 3.5 g/dL (3.5-5.0); ALBUMIN/GLOBULIN RATIO 0.9 (0.8-2.0); ANION GAP 17.1 mmol/L (8-16); CREATININE, SERUM 1.21 mg/dL (0.72-1.25); POTASSIUM 4.1 mmol/L (3.5-5.1)
[2022-04-09] MEDS ORDERED: IOPAMIDOL 370 MG/ML 100 ML INFUS..BTL INJ ONE (10:34)
== END 2022-04-09 12:11 | disposition home or self-care (01) ==
LOC: ER 09:24
DX: U07.1 COVID-19 (principal); J45.909 Unspecified asthma, uncomplicated; I10 Essential (primary) hypertension; E11.9 Type 2 diabetes mellitus without complications; Z79.84 Long term (current) use of oral hypoglycemic drugs; Z79.899 Other long term (current) drug therapy; Z98.61 Coronary angioplasty status
CPT/HCPCS: 36415; 71260; 80053; 84484; 85025; 93005; 99284; J0456; J0696; J2930; J7030; J7050; Q9967

== ENCOUNTER 2023-11-08 14:57 | Inpatient (IN) | payer BC, OTHER ==
[~2023-11-08] VITALS: Ht 193 cm; Wt 172.4 kg
[2023-11-08 15:43] LABS: BASOPHILS # (AUTO) 0.1 (0.0-0.1); BASOPHILS % 0.8 % (0.0-1.0); EOSINOPHILS # (AUTO) 0.2 (0.0-0.4); EOSINOPHILS % 2.6 % (0.0-6.0); HEMATOCRIT 46.5 % (38.2-49.6); HEMOGLOBIN 15.5 g/dL (14.0-18.0); LYMPHOCYTES # (AUTO) 2.4 (1.0-3.2); LYMPHOCYTES % 27.1 % (18.0-39.1); MEAN CORPUSCULAR HEMOGLOBIN 30.9 pg (28-32); MEAN CORPUSCULAR HGB CONC 33.3 g/dL (31-35); MEAN CORPUSCULAR VOLUME 92.8 fL (81-99); MONOCYTES # (AUTO) 0.5 (0.2-0.8); MONOCYTES % 5.7 % (4.4-11.3); NEUTROPHILS # (AUTO) 5.6 (2.1-6.9); PLATELET COUNT 213 x10e3/uL (140-360); RED BLOOD COUNT 5.01 x10e6/uL (4.3-5.7); RED CELL DISTRIBUTION WIDTH 12.9 % (11.7-14.4); WHITE BLOOD COUNT 8.92 x10e3/uL (4.8-10.8)
[2023-11-08] MEDS ORDERED: SODIUM CHLORIDE FLUSH 10 ML SYR IV PRN (15:45)
[2023-11-08] MEDS: ASPIRIN 81 MG CHEW TAB PO ONE ×2 (15:46→19:07)
[2023-11-08 15:56] LABS: ALBUMIN 3.9 g/dL (3.5-5.0); ALBUMIN/GLOBULIN RATIO 1.1 (0.8-2.0); ANION GAP 14.9 mmol/L (8-16); BILIRUBIN,TOTAL 0.4 mg/dL (0.2-1.2); CALCIUM 9.4 mg/dL (8.4-10.2); CREATININE, SERUM 1.26 mg/dL (0.72-1.25); POTASSIUM 3.9 mmol/L (3.5-5.1); TOTAL PROTEIN 7.3 g/dL (6.5-8.1)
[2023-11-08 16:02] LABS: TROPONIN I 0.012 ng/mL (0-0.300)
[2023-11-08] MEDS ORDERED: ONDANSETRON HCL INJ 2MG/ML 2ML 2 MG/ML VIAL IV PRN (18:30)
[2023-11-08] MEDS ORDERED: SODIUM CHLORIDE FLUSH 10 ML SYR INJ PRN (18:30)
[2023-11-08] MEDS ORDERED: Morphine 2mg Syringe 2 MG/ML SYR IV PRN (18:30)
[2023-11-08] MEDS ORDERED: IOPAMIDOL 370 MG/ML 100 ML INFUS..BTL INJ ONE (21:00)
[2023-11-08] MEDS ORDERED: PROPRANOLOL HCL40 MG PO (22:34)
[2023-11-08] MEDS ORDERED: JANUVIA100 MG PO (22:34)
[2023-11-08] MEDS ORDERED: ASPIRIN CHEW81 MG PO (22:34)
[2023-11-08] MEDS ORDERED: GEMFIBROZIL600 MG PO (22:34)
[2023-11-08] MEDS ORDERED: OLMSRTN-AMLDPN1 EAC1 PO (22:34)
[2023-11-08] MEDS ORDERED: METFORMIN HCL500 M1 PO (22:34)
[2023-11-08] MEDS ORDERED: NEBIVOLOL HCL20 MG PO (22:34)
[2023-11-08] MEDS ORDERED: ROSUVASTATIN CA10 MG PO (22:34)
[2023-11-08] MEDS ORDERED: FENOFIBRATE160 MG PO (22:34)
[2023-11-08 23:57] VITALS: BP 111/52; PULSE 50; RESP 17; TEMP 97.9; O2SAT 99
[2023-11-09] VITALS (9 sets, daily range): BP systolic 99–142; BP diastolic 52–91; PULSE 48–68; RESP 16–22; TEMP 97.3–98.4; O2SAT 95–100
[2023-11-09 00:15] LABS: TROPONIN I 0.008 ng/mL (0-0.300)
[2023-11-09] MEDS ORDERED: ALBUTEROL SULF 0.083% NEB SOLN 3 ML NEB NEB PRN (04:30)
[2023-11-09 06:16] LABS: BASOPHILS # (AUTO) 0.1 (0.0-0.1); BASOPHILS % 0.7 % (0.0-1.0); EOSINOPHILS # (AUTO) 0.3 (0.0-0.4); EOSINOPHILS % 3.4 % (0.0-6.0); HEMATOCRIT 45.7 % (38.2-49.6); HEMOGLOBIN 15.2 g/dL (14.0-18.0); LYMPHOCYTES # (AUTO) 2.5 (1.0-3.2); LYMPHOCYTES % 29.5 % (18.0-39.1); MEAN CORPUSCULAR HEMOGLOBIN 31.1 pg (28-32); MEAN CORPUSCULAR HGB CONC 33.3 g/dL (31-35); MEAN CORPUSCULAR VOLUME 93.5 fL (81-99); MONOCYTES # (AUTO) 0.7 (0.2-0.8); MONOCYTES % 7.7 % (4.4-11.3); NEUTROPHILS # (AUTO) 4.9 (2.1-6.9); NEUTROPHILS % 58.2 % (38.7-80.0); PLATELET COUNT 197 x10e3/uL (140-360); RED BLOOD COUNT 4.89 x10e6/uL (4.3-5.7); WHITE BLOOD COUNT 8.42 x10e3/uL (4.8-10.8)
[2023-11-09 06:40] LABS: CALCIUM 9.2 mg/dL (8.4-10.2); CHOL/HDL RATIO 5.4 (3.9-4.7); CREATININE, SERUM 1.22 mg/dL (0.72-1.25)
[2023-11-09 06:49] LABS: TROPONIN I 0.006 ng/mL (0-0.300)
[2023-11-09] MEDS ORDERED: VALSARTAN 160 MG TAB PO SCH (09:00)
[2023-11-09] MEDS: ASPIRIN 325 MG TAB EC PO SCH (09:00)
[2023-11-09] MEDS: GLIPIZIDE 5 MG TAB PO SCH (09:00)
[2023-11-09] MEDS: GEMFIBROZIL 600 MG TAB PO SCH ×2 (09:00→16:13)
[2023-11-09] MEDS: ASPIRIN 81 MG CHEW TAB PO SCH (09:04)
[2023-11-09] MEDS: BENZONATATE 100 MG CAP PO SCH (09:04)
[2023-11-09] MEDS: AMLODIPINE BESYLATE 10 MG TAB PO SCH (09:05)
[2023-11-09] MEDS: CRESTOR 10MG PO SCH (21:07)
[2023-11-10] VITALS (11 sets, daily range): BP systolic 102–136; BP diastolic 54–83; PULSE 46–62; RESP 16–20; TEMP 97.7–98.4; O2SAT 96–100
[2023-11-10] MEDS: INSULIN LISPRO 100 UNIT/1 ML 3ML VIAL SQ SCH ×2 (11:30→11:53)
[2023-11-10] MEDS ORDERED: DEXTROSE 50% SYRINGE 50 ML IV PRN (11:30)
[2023-11-10] MEDS: SODIUM CHLORIDE 0.9% 1000ML 1,000 ML IV ONE (23:57)
[2023-11-11] VITALS (17 sets, daily range): BP systolic 114–141; BP diastolic 53–88; PULSE 44–64; RESP 11–22; TEMP 97.8–98.1; O2SAT 96–99
[2023-11-11 06:04] LABS: BASOPHILS # (AUTO) 0.1 (0.0-0.1); BASOPHILS % 0.9 % (0.0-1.0); EOSINOPHILS # (AUTO) 0.2 (0.0-0.4); EOSINOPHILS % 3.1 % (0.0-6.0); HEMATOCRIT 43.8 % (38.2-49.6); HEMOGLOBIN 14.3 g/dL (14.0-18.0); LYMPHOCYTES # (AUTO) 2.4 (1.0-3.2); LYMPHOCYTES % 30.7 % (18.0-39.1); MEAN CORPUSCULAR HEMOGLOBIN 30.8 pg (28-32); MEAN CORPUSCULAR HGB CONC 32.6 g/dL (31-35); MEAN CORPUSCULAR VOLUME 94.4 fL (81-99); MONOCYTES # (AUTO) 0.5 (0.2-0.8); MONOCYTES % 6.9 % (4.4-11.3); NEUTROPHILS # (AUTO) 4.4 (2.1-6.9); NEUTROPHILS % 57.7 % (38.7-80.0); PLATELET COUNT 177 x10e3/uL (140-360); RED BLOOD COUNT 4.64 x10e6/uL (4.3-5.7); WHITE BLOOD COUNT 7.66 x10e3/uL (4.8-10.8)
[2023-11-11 06:33] LABS: ALBUMIN 3.5 g/dL (3.5-5.0); ALBUMIN/GLOBULIN RATIO 1.2 (0.8-2.0); ANION GAP 10.9 mmol/L (8-16); BILIRUBIN,TOTAL 0.3 mg/dL (0.2-1.2); CALCIUM 8.8 mg/dL (8.4-10.2); CREATININE, SERUM 1.03 mg/dL (0.72-1.25); POTASSIUM 3.9 mmol/L (3.5-5.1); TOTAL PROTEIN 6.4 g/dL (6.5-8.1)
[2023-11-11] MEDS: SODIUM CHLORIDE 0.9% 1000ML 1,000 ML IV SCH (10:30)
[2023-11-11] MEDS: LIDOCAINE HCL 2% LOCAL 20 ML VIAL ONE (16:29)
[2023-11-11] MEDS: HEPARIN SOD (PORCINE) 1000 UNIT/ML 30ML ONE (16:29)
[2023-11-11] MEDS: ASPIRIN 325 MG TAB ONE (16:30)
[2023-11-11] MEDS: CLOPIDOGREL BISULFATE 75 MG TAB ONE (16:30)
[2023-11-11] MEDS: HEPARIN SOD/SOD CHLORIDE 2,000 ML ONE (16:30)
[2023-11-11] MEDS: MIDAZOLAM HCL 2 MG/2 ML VIAL ONE (16:30)
[2023-11-11] MEDS: SODIUM CHLORIDE 0.9% 1000ML 1,000 ML ONE (16:31)
[2023-11-11] MEDS: FENTANYL CITRATE/PF 100MCG/2 ML INJ ONE (16:31)
[2023-11-11] MEDS: VERAPAMIL HCL 2.5 MG/ML 2 ML VIAL ONE (16:31)
[2023-11-11] MEDS: NITROGLYCERIN/D5W 200 MCG/ML 250 ML ONE (16:32)
[2023-11-11] MEDS: IOPAMIDOL 370 MG/ML 100 ML INFUS..BTL INJ ONE (16:32)
[2023-11-11] MEDS ORDERED: PLAVIX75 MG PO (19:41)
[2023-11-12] MEDS ORDERED: GLIPIZIDE 5 MG TAB PO SCH (07:30)
== END 2023-11-11 20:21 | disposition home or self-care (01) | DRG 322 ==
LOC: ER 15:04 → ERHOLD 18:28 → MED/SURG2 21:29 → OBSVTOIN 11-11 07:26
PROVIDERS: ADMIT Family Medicine; ATTEND Family Medicine
PROC: 027034Z Dilation of Coronary Artery, One Artery with Drug-eluting Intraluminal Device, Percutaneous Approach (ICD-10-PCS; principal; 2023-11-11)
PROC: 4A023N7 Measurement of Cardiac Sampling and Pressure, Left Heart, Percutaneous Approach (ICD-10-PCS; 2023-11-11)
PROC: B211YZZ Fluoroscopy of Multiple Coronary Arteries using Other Contrast (ICD-10-PCS; 2023-11-11)
DX: I25.110 Atherosclerotic heart disease of native coronary artery with unstable angina pectoris (principal); Z68.42 Body mass index [BMI] 45.0-49.9, adult; R00.1 Bradycardia, unspecified; I10 Essential (primary) hypertension; J44.9 Chronic obstructive pulmonary disease, unspecified; E11.9 Type 2 diabetes mellitus without complications; Z79.84 Long term (current) use of oral hypoglycemic drugs; I25.10 Atherosclerotic heart disease of native coronary artery without angina pectoris; Z96.652 Presence of left artificial knee joint; G47.33 Obstructive sleep apnea (adult) (pediatric); E66.01 Morbid (severe) obesity due to excess calories; E78.5 Hyperlipidemia, unspecified; Z79.899 Other long term (current) drug therapy; Z87.891 Personal history of nicotine dependence; Z20.822 Contact with and (suspected) exposure to COVID-19
CPT/HCPCS: 36415; 71045; 71260; 76937; 80048; 80053; 80061; 82550; 83036; 83880; 84484; 85025; 92928; 93005; 93306; 93458; 94760; 94799; 99152; 99153; 99284; C1725; C1874; G0378; J1644; J2001; J2250; J7030; Q9967; U0002